=== PATIENT | male | born 1955 | race Caucasian/White ===

== ENCOUNTER 2018-04-28 12:12 | Inpatient (IN) | payer MEDICARE ==
[2018-04-28] MEDS ORDERED: ROCEPHIN 1 Gm-D5w 50 ml Bag** 1 G/50 ML IVPB IV SCH (14:00)
[2018-04-28] MEDS ORDERED: TYLENOL 325 MG PO PRN (14:56)
[2018-04-28] MEDS ORDERED: Kayexylate 15 GM/60 ML PO SCH (15:00)
[2018-04-28] MEDS ORDERED: Sodium Chloride 0.9% 1000 ML 1,000 ML IV SCH (15:00)
[2018-04-28] MEDS ORDERED: D50W 50 ml Abboject IV SCH (15:00)
[2018-04-28] MEDS ORDERED: NovoLOG Insulin IV SCH (15:10)
[2018-04-28] MEDS ORDERED: Sodium Chloride 0.9% 500 ML 500 ML IV ONE (15:28)
[2018-04-28 15:31] LABS: BASOPHIL % 0.1 % (0.0-0.4); Basophil (Absolute #) 0.01 (0-0.4); Eosinophil % 0.7 % (0.00-5.0); Eosinophil (Absolute #) 0.06 (0-0.5); Granulocyte Absolute (ANC) 6.98 (1.4-6.9); Granulocytes % 81.4 % (36.0-66.0); Hematocrit 27.3 % (42-50); Hemoglobin 8.9 gm/dl (12.5-18.0); Lymphocyte (Absolute #) 0.94 (1.0-4.6); Mean Cell Volume 101.5 fl (78-100); Mean Corpuscular Hgb Concent. 32.6 g/dl (32-36); Mean Platelet Volume 9.9 fl (6-9.5); Monocyte (Absolute #) 0.58 (0.0-1.3); Monocytes % 6.8 % (0.0-12.0); Platelet Count 220 K/mm3 (150-450); Red Blood Count 2.69 M/mm3 (4.1-5.6); Red Cell Distribution Width 15.9 % (11.5-14.0); White Blood Count 8.6 K/mm3 (4.0-10.5)
[2018-04-28 15:43] LABS: ALBUMIN 3.9 g/dL (3.5-5.0); ANION GAP 20.4 MEQ/L (5-15); BILIRUBIN,TOTAL 0.7 mg/dL (0.2-1.3); Calcium 9.2 mg/dL (8.4-10.2); Creatinine 1 3.07 mg/dL (0.66-1.25); Total Protein 6.9 g/dL (6.3-8.2)
[2018-04-28 15:47] LABS: Potassium 6.8 mmol/L (3.5-5.1)
[2018-04-28 16:17] VITALS: BP 117/54; PULSE 72; O2SAT 97
--- NOTE | 2018-04-28 16:40 | PCM.HP ---
History of Present Illness - Chief Complaint Chief Complaint: hyperkalemia, acute renal failure History of Present Illness: is a 62 year old male with advanced MS who is wheelchair bound and resides at [facility]. I received a call this morning that he was disoriented, labs revealed that he had hyperkalemia and acute renal failure so he was direct admitted to [facility], he has been treated with fluids and started on rocephin for UTI since admission as well when pyuria was discovered. He has been slightly hypotensive but hemodynamically stable since admission. He denies any focal complaints of pain, has no fever but again his chief complaint was confusion. he has an extensive cardiac history with multiple stents and MIs in the past. - Review of Systems Constitutional: Weakness, No Fever, No Chills Respiratory: No Cough, No Short Of Breath Cardiac: No Chest Pain, No Edema, No Syncope Abdominal/Gastrointestinal: No Abdominal Pain, No Nausea, No Vomiting, No Diarrhea Neurological: Parasthesia, No Focal Weakness All Other Systems: Reviewed and Negative Medications & Allergies Home Medications: Home Medication List Amlodipine Besylate 5 mg [Norvasc 5 mg] 5 mg PO HS 06/16/16 [History Confirmed 04/28/18] Aspirin 81 mg PO DAILY 06/16/16 [History Confirmed 04/28/18] Atorvastatin Calcium [Lipitor] 40 mg PO HS 06/16/16 [History Confirmed 04/28/18] Escitalopram Oxalate 10 mg [Lexapro 10 MG] 20 mg PO DAILY 06/16/16 [History Confirmed 04/28/18] Famotidine 20 mg [Pepcid 20 MG] 20 mg PO BID 06/16/16 [History Confirmed 04/28/18] Isosorbide Mononitrate [Isosorbide Mononitrate ER] 120 mg PO DAILY 06/16/16 [ History Confirmed 04/28/18] Lisinopril 10 mg [Zestril 10 MG] 10 mg PO DAILY 06/16/16 [History Confirmed 04/28/18] Metformin HCl 1000 mg [Glucophage 1000 MG] 1,000 mg PO BID 06/16/16 [History Confirmed 04/28/18] Metoprolol Succinate 25 mg PO HS 06/16/16 [History Confirmed 04/28/18] Ropinirole HCl 2 mg PO HS 06/16/16 [History Confirmed 04/28/18] Terbinafine HCl 250 mg PO DAILY 06/16/16 [History Confirmed 04/28/18] Clopidogrel Bisulfate 75 mg [PLAVIX 75 MG Tablet] 75 mg PO DAILY 06/26/16 [History Confirmed 04/28/18] Glipizide 10 mg [Glucotrol 10 MG] 5 mg PO DAILY 06/26/16 [History Confirmed 04/28/18] PANTOPRAZOLE 40 mg Tablet [Protonix 40MG Tablet] 40 mg PO DAILY 06/26/16 [ History Confirmed 04/28/18] Polyethylene Glycol 3350 17 gm [Miralax Powder 17GM PACKET] 17 gm PO DAILY [History Confirmed 04/28/18] Solifenacin Succinate [Vesicare] 10 mg PO DAILY 06/26/16 [History Confirmed ] Buspirone HCl 15 mg PO BID 08/28/16 [History Confirmed 04/28/18] Cinnamon Bark [Cinnamon] 1,000 mg PO DAILY 08/28/16 [History Confirmed 04/28/18] Ranolazine 500 MG [Ranexa 500 MG] 1,000 mg PO BID 08/28/16 [History Confirmed 04/28/18] Dextrose [Glucose] 4 gm PO UD 04/28/18 [History Confirmed 04/28/18] Duloxetine HCl 30 mg [Cymbalta 30 MG Capsule] 60 mg PO DAILY 04/28/18 [ History Confirmed 04/28/18] Gabapentin 400 mg [Neurontin 400 MG] 600 mg PO TID 04/28/18 [History Confirmed 04/28/18] Glatiramer Acetate [Copaxone] 40 mg SQ 3XW 04/28/18 [History Confirmed 04/28/18] Guaifenesin/Codeine 5 ml [Robitussin AC Syrup Unit Dose Cup] 5 ml PO TID 04/28/18 [History Confirmed 04/28/18] Loperamide HCl 2 mg [Imodium 2 mg] 2 mg PO TID 04/28/18 [History Confirmed 04/28/18] Methocarbamol [Robaxin-750] 1,500 mg PO TID 04/28/18 [History Confirmed 04/28/18 ] Nitroglycerin 0.4 mg Tablet [Nitrostat 0.4 MG Tablet] 0.4 mg SL Q12H PRN PRN 04/28/18 [History Confirmed 04/28/18] Ondansetron ODT 4 MG [Zofran Odt 4 mg] 4 mg PO Q6H PRN PRN 04/28/18 [ History Confirmed 04/28/18] Ranolazine 500 MG [Ranexa 500 MG] 500 mg PO BID 04/28/18 [History Confirmed 04/28/18] Ropinirole HCl 1 mg PO TID 04/28/18 [History Confirmed 04/28/18] Sennosides [Senna Laxative] 8.6 mg PO DAILY 04/28/18 [History Confirmed 04/28/18 ] Allergies/Adverse Reactions: Allergies Allergy/AdvReac Type Severity Reaction Status Date / Time interferon beta-1a Allergy Verified 06/26/16 22:42 [From Avonex] Penicillins Allergy Verified 04/17/16 21:52 interferon beta-1b AdvReac Verified 06/26/16 22:42 [From Betaseron] - Past Medical History Past Medical History: Yes Neurological History: Other ENT History: No Pertinent History Cardiac History: Coronary Artery Disease, Myocardial Infarction ([place]) Respiratory History: No Pertinent History Endocrine Medical History: Diabetes Type II Musculoskelatal History: Arthritis GI Medical History: GERD History: Other Pyscho-Social History: Anxiety Male Reproductive Disorders: No Pertinent History Comment: MULTPILE SCLEROSIS. BILATERAL LE CHRONIC EDEMA AND CELLULITIS WITH HISTORY OF OPEN WOULDS; POOR LE CIRCULATION WITH RLE WORSE THAN LLE. LYMPHODEMA;. NEUROGENIC BLADDER - Past Surgical History Past Surgical History: Yes Neuro Surgical History: No Pertinent History Cardiac History: No Pertinent History Respiratory Surgery: No Pertinent History GI Surgical History: No Pertinent History Genitourinary Surgical Hx: No Pertinent History Musculskeletal Surgical Hx: No Pertinent History Male Surgical History: No Pertinent History Other Surgical History: BIARTERIAL LEFT LEG, HEART CATH X 5, STRESS TESTS, HERNIA REPAIR - Social History Smoking Status: Former smoker How long have you smoked: 30 Exposure to second hand smoke: No Alcohol: None Drug Use: none - Physical Exam Vital Signs: Vital Signs - 24 hr Temp Pulse Resp BP Pulse Ox 04/28/18 16:16 98.0 F 72 18 117/54 97 04/28/18 13:31 98.0 F 96 H 18 78/47 95 General Appearance: no apparent distress, obese Neurologic Exam: alert, cooperative Respiratory Exam: normal breath sounds, lungs clear, No respiratory distress Cardiovascular Exam: regular rate/rhythm, normal heart sounds, normal peripheral pulses Gastrointestinal/Abdomen Exam: soft, normal bowel sounds, No tenderness, No mass Extremity Exam: normal inspection, normal range of motion, pelvis stable, other (contractures to joel hands. chronic lower extremity swelling, weakness BLE chronically) Results - Labs Lab/Micro Results: Accuchecks Date 04/28/18 Time 16:17 Accucheck Value: 73 Lab Results-Last 24 Hours 04/28/18 04/28/18 Range/Units 15:10 15:10 WBC 8.6 (4.0-10.5) K/mm3 RBC 2.69 L (4.1-5.6) M/mm3 Hgb 8.9 L (12.5-18.0) gm/dl Hct 27.3 L (42-50) % MCV 101.5 H (78-100) fl MCH 33.0 H (26-32) pg MCHC 32.6 (32-36) g/dl RDW 15.9 H (11.5-14.0) % Plt Count 220 (150-450) K/mm3 MPV 9.9 H (6-9.5) fl Gran % 81.4 H (36.0-66.0) % Eos # (Auto) 0.06 (0-0.5) Absolute Lymphs (auto) 0.94 L (1.0-4.6) Absolute Monos (auto) 0.58 (0.0-1.3) Lymphocytes % 11.0 L (24.0-44.0) % Monocytes % 6.8 (0.0-12.0) % Eosinophils % 0.7 (0.00-5.0) % Basophils % 0.1 (0.0-0.4) % Absolute Granulocytes 6.98 H (1.4-6.9) Basophils # 0.01 (0-0.4) Sodium 138 (137-145) mmol/L Potassium 6.8 H* (3.5-5.1) mmol/L Chloride 105 (98-107) mmol/L Carbon Dioxide 20 L (22-30) mmol/L Anion Gap 20.4 H (5-15) MEQ/L BUN 67 H (9-20) mg/dL Creatinine 3.07 H (0.66-1.25) mg/dL Estimated GFR 21.9 ML/MIN Glucose 62 L (74-106) mg/dL Calcium 9.2 (8.4-10.2) mg/dL Total Bilirubin 0.70 (0.2-1.3) mg/dL AST 50 (17-59) U/L ALT 62 H (0-50) U/L Alkaline Phosphatase 41 (38-126) U/L Serum Total Protein 6.9 (6.3-8.2) g/dL Albumin 3.9 (3.5-5.0) g/dL Accuchecks Date 04/28/18 Time 16:17 Accucheck Value: 73 Assessment/Plan (1) Acute renal failure (ARF) Current Visit: Yes Status: Acute Assessment & Plan: has worsened with IV fluids since admission, will transfer to [facility] under the care of Dr Dimas. (2) Hyperkalemia Current Visit: Yes Status: Acute Assessment & Plan: transfer to [facility], may need dialysis, no improvement with IV insulin and kayexalate. Code(s): E87.5 - HYPERKALEMIA (3) UTI (urinary tract infection) Current Visit: Yes Status: Acute Assessment & Plan: on rocephin emperically, urine culture pending. had elevated lactate as well, will draw blood cultures but unfortunately rocephin has already been given. Code(s): N39.0 - URINARY TRACT INFECTION, SITE NOT SPECIFIED (4) Hypotension Current Visit: Yes Status: Acute Assessment & Plan: currently 117/54 after bolus and IV fluids initiated, hold all antihypertensives at this time. likely related to UTI and renal failure Code(s): I95.9 - HYPOTENSION, UNSPECIFIED (5) Multiple sclerosis Current Visit: Yes Status: Acute Code(s): G35 - MULTIPLE SCLEROSIS
[2018-04-28] MEDS ORDERED: D50W 50 ml Abboject IV ONE (16:43)
[2018-04-28] MEDS ORDERED: NEURONTIN 300 MG PO SCH (16:45)
[2018-04-28] MEDS ORDERED: GLATIRAMER ACETATE 40 MG SQ SCH (16:45)
[2018-04-28] MEDS ORDERED: Dextrose 5%-NS IV Solution 1000 ML 1,000 ML IV SCH (17:00)
[2018-04-28] MEDS ORDERED: MEDICATION INTERVENTION PO SCH (17:00)
[2018-04-28] MEDS ORDERED: Ditropan 5 MG PO SCH (22:00)
[2018-04-28] MEDS ORDERED: REQUIP 2MG TAB PO SCH (22:00)
[2018-04-28] MEDS ORDERED: Pepcid 20 MG PO SCH (22:00)
[2018-04-28] MEDS ORDERED: BUSPAR 5 MG PO SCH (22:00)
[2018-04-28] MEDS ORDERED: NON-FORMULARY ITEM (Ropinirole Hcl [Ropinirole Hcl] 1 MG) PO SCH (22:00)
[2018-04-29] MEDS ORDERED: NON-FORMULARY ITEM (Solifenacin Succinate [Vesicare] 10 MG) PO SCH (10:00)
[2018-04-29] MEDS ORDERED: ECOTRIN 81 MG PO SCH (10:00)
[2018-04-29] MEDS ORDERED: NON-FORMULARY ITEM (Aspirin [Aspirin] 81 MG) PO SCH (10:00)
[2018-04-29] MEDS ORDERED: PLAVIX 75 MG Tablet PO SCH (10:00)
[2018-04-29] MEDS ORDERED: Cymbalta 30 MG Capsule PO SCH (10:00)
[2018-04-29] MEDS ORDERED: SENOKOT 8.6 MG PO SCH (10:00)
[2018-04-29] MEDS ORDERED: Protonix 40MG Tablet PO SCH (10:00)
[2018-04-29] MEDS ORDERED: Imdur 60MG PO SCH (10:00)
== END 2018-04-28 18:30 | disposition home or self-care (01) | DRG 683 ==
LOC: MED SURG 13:14
PROVIDERS: ADMIT Family Medicine; ATTEND Family Medicine
DX: N17.9 Acute kidney failure, unspecified (principal); N39.0 Urinary tract infection, site not specified; E87.5 Hyperkalemia; E11.649 Type 2 diabetes mellitus with hypoglycemia without coma; T38.3X5A Adverse effect of insulin and oral hypoglycemic [antidiabetic] drugs, initial encounter; G35 Multiple sclerosis; I25.10 Atherosclerotic heart disease of native coronary artery without angina pectoris; I25.2 Old myocardial infarction; M19.90 Unspecified osteoarthritis, unspecified site; K21.9 Gastro-esophageal reflux disease without esophagitis; F41.9 Anxiety disorder, unspecified; N31.9 Neuromuscular dysfunction of bladder, unspecified; I95.9 Hypotension, unspecified
CPT/HCPCS: 36415; 80053; 81000; 82140; 83605; 85025; 85027; 87040; 87086; P9603; 87077; 87186; J0696

== ENCOUNTER 2019-01-19 00:43 | Observation (INO) | payer MEDICARE ==
[2019-01-19] MEDS ORDERED: BABY ASPIRIN 81 MG CHEW PO ONE (00:57)
[2019-01-19 01:09] LABS: BASOPHIL % 0.6 % (0.0-0.4); Basophil (Absolute #) 0.04 (0-0.4); Eosinophil (Absolute #) 0.21 (0-0.5); Granulocyte Absolute (ANC) 5.24 (1.4-6.9); Hematocrit 35.9 % (42-50); Hemoglobin 11.4 gm/dl (12.5-18.0); Lymphocyte (Absolute #) 0.98 (1.0-4.6); Lymphocytes % 14.2 % (24.0-44.0); Mean Cell Volume 94.5 fl (78-100); Mean Corpuscular Hgb Concent. 31.8 g/dl (32-36); Mean Platelet Volume 9.3 fl (6-9.5); Monocyte (Absolute #) 0.43 (0.0-1.3); Monocytes % 6.2 % (0.0-12.0); Platelet Count 240 K/mm3 (150-450); White Blood Count 6.9 K/mm3 (4.0-10.5)
--- NOTE | 2019-01-19 01:13 | ERPHSYRPT ---
- History of Present Illness Time Seen by Provider: 01/19/19 00:59 Historian: patient Exam Limitations: no limitations Patient Subjective Stated Complaint: Pt states he started having substernal cp radiating down joel arms 2 hrs ago, pt was given Nitro SL x 3 at [place] with no relief, pain was 9/10 at this time. 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 per EMS pt bp fishing captain was 190/ 115 Triage Nursing Assessment: [place]/warm/dry, resp easy, a&ox4, gait not observed, pt very talkative. Pitting edema noted to joel legs that pt states is normal. Physician History: 63-year-old white male with history of lymphedema, chronic leg edema, cellulitis , coronary artery disease, myocardial infarction, diabetes. Patient arrives with complaint of substernal chest pain lasting 2 hours Patient states the pain feels like a pressure he denies shortness of breath nausea or vomiting. He does state that he ate 2 bowls a chili prior to the onset of symptoms. Patient initially had a pain level rated as 9/10 after taking Mylanta it was 2/ 10 and now states that he is pain-free. Past medical history includes lymphedema, chronic leg edema, cellulitis of the lower extremities, coronary artery disease, myocardial infarction, diabetes type 2, myocardial infarction, GERD, arthritis, anxiety, multiple sclerosis, neurogenic bladder Past surgical history includes by arterial lower extremity, heart catheter x5, stress test, hernia repair Social history former smoker Timing/Duration: today (2 hours) Activities at Onset: none Quality: pressure Location: substernal Chest Pain Radiation: no radiation Severity of Pain-Max: moderate Severity of Pain-Current: none Modifying Factors: Improves With: antacids (improved after Mylanta), other ( patient states he ate 2 bowls of chili). Worsens With: breathing, coughing, defecating, eating, exertion, lying down, morphine, movement, nitroglycerin, oxygen, palpation, rest, aspirin, sitting up, change in position Associated Symptoms: No nausea, No vomiting, No palpitations, No heartburn, No abdominal pain, No shortness of breath, No cough, No hurts to breathe, No diaphoresis, No chills, No fever, No fatigue, No weakness, No swelling/lump in chest, No syncope, No rash, No headache, No dizziness, No edema, No back pain Prior Chest Pain/Cardiac Workup: cardiac cath Nitro Today/Relief: 0.4 mg x 3 (provided by group home) Aspirin Treatment Today: 81 mg x 3, provided by ED Allergies/Adverse Reactions: interferon beta-1a [From Avonex] Allergy (Verified 06/26/16 22:42) Penicillins Allergy (Verified 04/17/16 21:52) interferon beta-1b [From Betaseron] Adverse Reaction (Verified 06/26/16 22:42) Home Medications: Amlodipine Besylate 5 mg [Norvasc 5 mg] 5 mg PO HS 06/16/16 [History] Aspirin 81 mg PO DAILY 06/16/16 [History] Atorvastatin Calcium [Lipitor] 40 mg PO HS 06/16/16 [History] Escitalopram Oxalate 10 mg [Lexapro 10 MG] 20 mg PO DAILY 06/16/16 [History] Famotidine 20 mg [Pepcid 20 MG] 20 mg PO BID 06/16/16 [History] Isosorbide Mononitrate [Isosorbide Mononitrate ER] 120 mg PO DAILY 06/16/16 [ History] Lisinopril 10 mg [Zestril 10 MG] 10 mg PO DAILY 06/16/16 [History] Metformin HCl 1000 mg [Glucophage 1000 MG] 1,000 mg PO BID 06/16/16 [History] Metoprolol Succinate 25 mg PO HS 06/16/16 [History] Ropinirole HCl 2 mg PO HS 06/16/16 [History] Terbinafine HCl 250 mg PO DAILY 06/16/16 [History] Clopidogrel Bisulfate 75 mg [PLAVIX 75 MG Tablet] 75 mg PO DAILY 06/26/16 [History] Glipizide 10 mg [Glucotrol 10 MG] 5 mg PO DAILY 06/26/16 [History] PANTOPRAZOLE 40 mg Tablet [Protonix 40MG Tablet] 40 mg PO DAILY 06/26/16 [ History] Polyethylene Glycol 3350 17 gm [Miralax Powder 17GM PACKET] 17 gm PO DAILY [History] Solifenacin Succinate [Vesicare] 10 mg PO DAILY 06/26/16 [History] Buspirone HCl 15 mg PO BID 08/28/16 [History] Cinnamon Bark [Cinnamon] 1,000 mg PO DAILY 08/28/16 [History] Ranolazine 500 MG [Ranexa 500 MG] 1,000 mg PO BID 08/28/16 [History] Dextrose [Glucose] 4 gm PO UD 04/28/18 [History] Duloxetine HCl 30 mg [Cymbalta 30 MG Capsule] 60 mg PO DAILY 04/28/18 [ History] Gabapentin 400 mg [Neurontin 400 MG] 600 mg PO TID 04/28/18 [History] Glatiramer Acetate [Copaxone] 40 mg SQ 3XW 04/28/18 [History] Guaifenesin/Codeine 5 ml [Robitussin AC Syrup Unit Dose Cup] 5 ml PO TID 04/28/18 [History] Loperamide HCl 2 mg [Imodium 2 mg] 2 mg PO TID 04/28/18 [History] Methocarbamol [Robaxin-750] 1,500 mg PO TID 04/28/18 [History] Nitroglycerin 0.4 mg Tablet [Nitrostat 0.4 MG Tablet] 0.4 mg SL Q12H PRN PRN 04/28/18 [History] Ondansetron ODT 4 MG [Zofran Odt 4 mg] 4 mg PO Q6H PRN PRN 04/28/18 [ History] Ranolazine 500 MG [Ranexa 500 MG] 500 mg PO BID 04/28/18 [History] Ropinirole HCl 1 mg PO TID 04/28/18 [History] Sennosides [Senna Laxative] 8.6 mg PO DAILY 04/28/18 [History] Hx Tetanus, Diphtheria Vaccination/Date Given: Yes Hx Influenza Vaccination/Date Given: No Hx Pneumococcal Vaccination/Date Given: No Immunizations Up to Date: Yes - Review of Systems Constitutional: No Fever, No Chills Eyes: No Symptoms Ears, Nose, & Throat: No Symptoms Respiratory: No Cough, No Dyspnea Cardiac: Chest Pain, Edema (cchronic lower extremity edema), No Palpitations, No Syncope, No Orthopnea, No PND Abdominal/Gastrointestinal: No Abdominal Pain, No Nausea, No Vomiting, No Diarrhea Genitourinary Symptoms: No Dysuria Musculoskeletal: No Back Pain, No Neck Pain Skin: No Rash Neurological: No Dizziness, No Focal Weakness, No Sensory Changes Psychological: No Symptoms Endocrine: No Symptoms All Other Systems: Reviewed and Negative - Past Medical History Pertinent Past Medical History: Yes Neurological History: Other ENT History: No Pertinent History Cardiac History: Coronary Artery Disease, Myocardial Infarction ([place]) Respiratory History: No Pertinent History Endocrine Medical History: Diabetes Type II Musculoskeletal History: Arthritis GI Medical History: GERD History: Other Psycho-Social History: Anxiety Male Reproductive Disorders: No Pertinent History Other Medical History: MULTPILE SCLEROSIS. BILATERAL LE CHRONIC EDEMA AND CELLULITIS WITH HISTORY OF OPEN WOULDS; POOR LE CIRCULATION WITH RLE WORSE THAN LLE. LYMPHODEMA;. NEUROGENIC BLADDER - Past Surgical History Past Surgical History: Yes Neuro Surgical History: No Pertinent History Cardiac: No Pertinent History Respiratory: No Pertinent History Gastrointestinal: No Pertinent History Genitourinary: No Pertinent History Musculoskeletal: No Pertinent History Male Surgical History: No Pertinent History Other Surgical History: BIARTERIAL LEFT LEG, HEART CATH X 5, STRESS TESTS, HERNIA REPAIR - Social History Smoking Status: Former smoker How long have you smoked: 30 Exposure to second hand smoke: No Drug Use: none Patient Lives Alone: No - Nursing Vital Signs Nursing Vital Signs: Initial Vital Signs Temperature 98.1 F 01/19/19 00:44 Pulse Rate 100 H 01/19/19 00:44 Respiratory Rate 16 01/19/19 00:44 Blood Pressure 154/95 01/19/19 00:44 O2 Sat by Pulse Oximetry 97 01/19/19 00:44 Pain Scale Pain Intensity 0 - Physical Exam General Appearance: no apparent distress, alert, obese Eye Exam: PERRL/EOMI, eyes nml inspection Ears, Nose, Throat Exam: normal ENT inspection, moist mucous membranes Neck Exam: normal inspection, non-tender, supple, full range of motion Respiratory Exam: normal breath sounds, lungs clear, No respiratory distress Cardiovascular Exam: regular rate/rhythm, normal heart sounds, capillary refill <2 sec, edema (chronic lower extremity edema) Gastrointestinal/Abdomen Exam: soft, No tenderness, No mass Back Exam: normal inspection Extremity Exam: normal range of motion, other (chronic lower extremity edema) Neurologic Exam: alert, oriented x 3, cooperative, plant operator II-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 nml as tested, normal mood/affect, sensation nml, No motor deficits Skin Exam: normal color, warm, dry SpO2 Interpretation: normal (97%) SpO2: 97 - Course Nursing assessment & vital signs reviewed: Yes EKG Interpreted by Me: RATE (100 bpm), Sinus Rhythm, Left Dante Deviation, Other (EKG: Sinus rhythm, 100 beats per minute, normal axis, no acute ST or T wave changes) - Radiology Exams Chest X-ray Interpretation: Interpreted by me (no acute disease process) Ordered Tests: Active Orders 24 hr Category Date Time Status Motor Grader Operator STAT Care 01/19/19 00:56 Active EKG-ER Only STAT Care 01/19/19 00:54 Active IV Insertion STAT Care 01/19/19 00:54 Active Pulse Oximetry (ED) STAT Care 01/19/19 00:54 Active CHEST 1 VIEW (PORTABLE) Stat Exams 01/19/19 00:55 Taken CHEST WITH CONTRAST [CT] Stat Exams 01/19/19 01:33 Taken AMYLASE Stat Lab 01/19/19 01:00 Completed CBC W DIFF Stat Lab 01/19/19 01:00 Completed CMP Stat Lab 01/19/19 01:00 Completed D-DIMER QUANTITATION Stat Lab 01/19/19 01:00 Completed LIPASE Stat Lab 01/19/19 01:00 Completed PROTIME WITH INR Stat Lab 01/19/19 01:00 Completed PTT Stat Lab 01/19/19 01:00 Completed TROPONIN Q3H Lab 01/19/19 01:00 Completed TROPONIN Q3H Lab 01/19/19 04:00 Ordered TROPONIN Q3H Lab 01/19/19 07:00 Ordered TROPONIN Q3H Lab 01/19/19 10:00 Ordered TROPONIN Q3H Lab 01/19/19 13:00 Ordered Transfer Order Routine Transfer 01/19/19 Ordered Medication Summary Discontinued Medications Generic Name Dose Route Start Last Admin Trade Name Freq PRN Reason Stop Dose Admin Aspirin 243 mg 01/19/19 00:57 01/19/19 01:54 Baby Aspirin 81 Mg Chew PO 01/19/19 00:58 243 mg STAT ONE Administration Enoxaparin Sodium 110 mg 01/19/19 03:38 01/19/19 03:45 Enoxaparin Sodium 1 mg/kg (110 mg) 01/19/19 03:39 110 mg SQ Administration 1XONLY STA Enoxaparin Sodium Confirm 01/19/19 03:42 Enoxaparin Sodium Administered 01/19/19 03:43 Dose 120 mg SQ .STK-MED ONE Lab/Rad Data: Laboratory Result Diagrams 01/19/19 01:00 01/19/19 01:00 Laboratory Results 01/19/19 01/19/19 01/19/19 Range/Units 01:00 01:00 01:00 WBC (4.0-10.5) K/mm3 RBC (4.1-5.6) M/mm3 Hgb (12.5-18.0) gm/dl Hct (42-50) % MCV (78-100) fl MCH (26-32) pg MCHC (32-36) g/dl RDW (11.5-14.0) % Plt Count (150-450) K/mm3 MPV (6-9.5) fl Gran % (36.0-66.0) % Eos # (Auto) (0-0.5) Absolute Lymphs (auto) (1.0-4.6) Absolute Monos (auto) (0.0-1.3) Lymphocytes % (24.0-44.0) % Monocytes % (0.0-12.0) % Eosinophils % (0.00-5.0) % Basophils % (0.0-0.4) % Absolute Granulocytes (1.4-6.9) Basophils # (0-0.4) PT 11.3 (8.83-12.87) SECONDS INR 0.97 (0.8-3.0) APTT 28.2 (24.1-36.1) SECONDS D-Dimer 984 H* (215-500) ng/mL Sodium (137-145) mmol/L Potassium (3.5-5.1) mmol/L Chloride (98-107) mmol/L Carbon Dioxide (22-30) mmol/L Anion Gap (5-15) MEQ/L BUN (9-20) mg/dL Creatinine (0.66-1.25) mg/dL Estimated GFR ML/MIN Glucose (74-106) mg/dL Calcium (8.4-10.2) mg/dL Total Bilirubin (0.2-1.3) mg/dL AST (17-59) U/L ALT (0-50) U/L Alkaline Phosphatase (38-126) U/L Troponin I 0.013 (0.000-0.034) ng/mL Serum Total Protein (6.3-8.2) g/dL Albumin (3.5-5.0) g/dL Amylase 79 (30-110) U/L Lipase 230 (23-300) U/L 01/19/19 01/19/19 Range/Units 01:00 01:00 WBC 6.9 (4.0-10.5) K/mm3 RBC 3.80 L (4.1-5.6) M/mm3 Hgb 11.4 L (12.5-18.0) gm/dl Hct 35.9 L (42-50) % MCV 94.5 (78-100) fl MCH 30.0 (26-32) pg MCHC 31.8 L (32-36) g/dl RDW 18.0 H (11.5-14.0) % Plt Count 240 (150-450) K/mm3 MPV 9.3 (6-9.5) fl Gran % 76.0 H (36.0-66.0) % Eos # (Auto) 0.21 (0-0.5) Absolute Lymphs (auto) 0.98 L (1.0-4.6) Absolute Monos (auto) 0.43 (0.0-1.3) Lymphocytes % 14.2 L (24.0-44.0) % Monocytes % 6.2 (0.0-12.0) % Eosinophils % 3.0 (0.00-5.0) % Basophils % 0.6 (0.0-0.4) % Absolute Granulocytes 5.24 (1.4-6.9) Basophils # 0.04 (0-0.4) PT (8.83-12.87) SECONDS INR (0.8-3.0) APTT (24.1-36.1) SECONDS D-Dimer (215-500) ng/mL Sodium 141 (137-145) mmol/L Potassium 4.4 (3.5-5.1) mmol/L Chloride 101 (98-107) mmol/L Carbon Dioxide 26 (22-30) mmol/L Anion Gap 17.9 H (5-15) MEQ/L BUN 20 (9-20) mg/dL Creatinine 0.86 (0.66-1.25) mg/dL Estimated GFR > 60.0 ML/MIN Glucose 270 H (74-106) mg/dL Calcium 9.7 (8.4-10.2) mg/dL Total Bilirubin 0.50 (0.2-1.3) mg/dL AST 48 (17-59) U/L ALT 44 (0-50) U/L Alkaline Phosphatase 104 (38-126) U/L Troponin I (0.000-0.034) ng/mL Serum Total Protein 8.1 (6.3-8.2) g/dL Albumin 4.4 (3.5-5.0) g/dL Amylase (30-110) U/L Lipase (23-300) U/L - Progress Progress: improved Air Movement: fair Progress Note: 01/19/19 03:33 63-year-old white male with history of lymphedema, chronic leg edema, cellulitis , coronary artery disease, myocardial infarction, diabetes type 2, arthritis, GERD, anxiety, MS who states he has had multiple heart attacks in the past Patient lives in local group home he was complaining of 2 hours of anterior chest pain described as a pressure prior to the time he came in here he states that he thought this might be from eating chili Patient apparently had been given nitroglycerin x3 at the group home with no relief he states that he took some Maalox and his pain went away patient initially had pain in the 10 he states his pain went to a 2/10 after taking Maalox and had 0/10 on arrival. Patient with stable vital signs upon arrival lungs were clear heart was regular Patient was EKG sinus rhythm 100 beats per minute left axis deviation no acute ST or T wave changes were noted chest x-ray no acute disease process noted patient unfortunately had elevated d-dimer and CT of the chest was remarkable for 2 focal filling defects located in the sub segmental branches of the left lower lobe pulmonary artery This was felt to be consistent by virtual radiology with the presence of pulmonary embolic disease. There was no evidence of right heart strain. No associated pulmonary infiltrate Patient with CBC white blood cell 6.9 hemoglobin 11.0 hematocrit 35.0 platelets 240 INR was 0.97 Troponin was 0.013 patient's sodium 141 potassium 4.4 chloride 101 bicarbonate 26 BUN 20 creatinine 0.86 glucose 270 d-dimer was elevated at 984 Patient was given aspirin to 43 mg orally here in the emergency room he states he takes daily 81 mg. Case was discussed with Dr. Rahman who is aqua ammonia operator for Dr. Bentley the patient's physician will go ahead and place patient on Lovenox 1 mg per kilogram subcutaneously. Will place patient on telemetry. Will go ahead and place patient on sliding scale insulin coverage. Will continue serial troponins and telemetry. Impression 1 chest pain. 2 pulmonary embolism. - Departure Departure Disposition: Observation Clinical Impression: Chest pain Qualifiers: Chest pain type: unspecified Qualified Code(s): R07.9 - Chest pain, unspecified Pulmonary embolism Qualifiers: Pulmonary embolism type: unspecified Chronicity: acute Acute cor pulmonale presence: without acute cor pulmonale Qualified Code(s): I26.99 - Other pulmonary embolism without acute cor pulmonale Condition: Fair Critical Care Time: No Referrals: ZAHRA ROWE [Primary Care Provider] -
[2019-01-19 01:18] LABS: INR 0.97 (0.8-3.0); PROTIME 11.3 SECONDS (8.83-12.87)
[2019-01-19 01:21] LABS: AMYLASE 79 U/L (30-110); LIPASE 230 U/L (23-300); PTT 28.2 SECONDS (24.1-36.1)
[2019-01-19 01:23] LABS: ALBUMIN 4.4 g/dL (3.5-5.0); ALKALINE PHOSPHATASE 104 U/L (38-126); ANION GAP 17.9 MEQ/L (5-15); BLOOD UREA NITROGEN 20 mg/dL (9-20); CHLORIDE 101 mmol/L (98-107); Calcium 9.7 mg/dL (8.4-10.2); Carbon Dioxide 26 mmol/L (22-30); Creatinine 1 0.86 mg/dL (0.66-1.25); Glucose 270 mg/dL (74-106); Potassium 4.4 mmol/L (3.5-5.1); SGOT/AST 48 U/L (17-59); SGPT/ALT 44 U/L (0-50); SODIUM 141 mmol/L (137-145); Total Protein 8.1 g/dL (6.3-8.2)
[2019-01-19] MEDS ORDERED: HOLD METFORMIN PRODUCTS FOR 48 HOURS MC SCH (02:20)
[2019-01-19] MEDS ORDERED: ENOXAPARIN SODIUM SQ STA (03:38)
[2019-01-19] MEDS ORDERED: ENOXAPARIN SODIUM SQ ONE (03:42)
[2019-01-19] MEDS ORDERED: ENOXAPARIN SODIUM SQ SCH ×2 (04:31→16:00)
--- NOTE | 2019-01-19 08:52 | PCM.SSS ---
History of Present Illness - Chief Complaint Chief Complaint: PE History of Present Illness: is a 63 year old male with multiple medical problems, he came to the ER with chest pain. He had been given nitro x 3 at [place] with no relief in his chest pain prior to arrival, he reports his pain resolved quickly after arrival to the hospital. He denies chest pain or shortness of breath, he has a history of CAD with stents and follows with Dr Lomax, he is wheelchair bound, morbidly obese with advance multiple sclerosis. This morning he feels completely well, denies any chest pain or shortness of breath and insists he wants to go back to [place] today. - Review of Systems Constitutional: No Fever, No Chills Respiratory: No Cough, No Short Of Breath Cardiac: Chest Pain (resolved) Abdominal/Gastrointestinal: No Abdominal Pain, No Nausea, No Vomiting, No Diarrhea Skin: No Rash Neurological: No Focal Weakness All Other Systems: Reviewed and Negative Medications & Allergies Home Medications: Home Medication List Amlodipine Besylate 5 mg [Norvasc 5 mg] 2.5 mg PO HS 06/16/16 [History Confirmed 01/19/19] Aspirin 81 mg PO DAILY 06/16/16 [History Confirmed 01/19/19] Atorvastatin Calcium [Lipitor] 40 mg PO HS 06/16/16 [History Confirmed 01/19/19] Famotidine 20 mg [Pepcid 20 MG] 20 mg PO BID 06/16/16 [History Confirmed 01/19/19] Isosorbide Mononitrate [Isosorbide Mononitrate ER] 120 mg PO DAILY 06/16/16 [ History Confirmed 01/19/19] Metformin HCl 1000 mg [Glucophage 1000 MG] 1,000 mg PO BID 06/16/16 [History Confirmed 01/19/19] Metoprolol Succinate 25 mg PO HS 06/16/16 [History Confirmed 01/19/19] Ropinirole HCl 2 mg PO HS 06/16/16 [History Confirmed 01/19/19] Terbinafine HCl 250 mg PO DAILY 06/16/16 [History Confirmed 01/19/19] Clopidogrel Bisulfate 75 mg [PLAVIX 75 MG Tablet] 75 mg PO DAILY 06/26/16 [History Confirmed 01/19/19] PANTOPRAZOLE 40 mg Tablet [Protonix 40MG Tablet] 40 mg PO DAILY 06/26/16 [ History Confirmed 01/19/19] Polyethylene Glycol 3350 17 gm [Miralax Powder 17GM PACKET] 17 gm PO DAILY [History Confirmed 01/19/19] Dextrose [Glucose] 4 gm PO UD 04/28/18 [History Confirmed 01/19/19] Duloxetine HCl 30 mg [Cymbalta 30 MG Capsule] 60 mg PO DAILY 04/28/18 [ History Confirmed 01/19/19] Glatiramer Acetate [Copaxone] 40 mg SQ 3XW 04/28/18 [History Confirmed 01/19/19] Loperamide HCl 2 mg [Imodium 2 mg] 2 mg PO TID PRN 04/28/18 [History Confirmed 01/19/19] Methocarbamol [Robaxin-750] 1,500 mg PO TID 04/28/18 [History Confirmed 01/19/19 ] Nitroglycerin 0.4 mg Tablet [Nitrostat 0.4 MG Tablet] 0.4 mg SL Q12H PRN PRN 04/28/18 [History Confirmed 01/19/19] Ondansetron ODT 4 MG [Zofran Odt 4 mg] 4 mg PO Q6H PRN PRN 04/28/18 [ History Confirmed 01/19/19] Ranolazine 500 MG [Ranexa 500 MG] 500 mg PO BID 04/28/18 [History Confirmed 01/19/19] Ropinirole HCl 1 mg PO TID 04/28/18 [History Confirmed 01/19/19] Sennosides [Senna Laxative] 8.6 mg PO DAILY 04/28/18 [History Confirmed 01/19/19 ] Acetaminophen 500 mg [Tylenol Extra Strength 500 mg] 500 mg PO Q4H PRN PRN 01/19/19 [History Confirmed 01/19/19] Buspirone HCl 5 mg [Buspar 5 mg] 10 mg PO BID 01/19/19 [History Confirmed 01/19/19] Cyanocobalamin (Vitamin B-12) [Vitamin B12] 1,000 mcg PO DAILY 01/19/19 [ History Confirmed 01/19/19] Docusate Sodium 100 mg [Colace 100 MG] 100 mg PO BID 01/19/19 [History Confirmed 01/19/19] Ergocalciferol (Vitamin D2) [Vitamin D] 50,000 unit PO 2XW 01/19/19 [History Confirmed 01/19/19] Folic Acid 1 mg [Folate 1 mg] 1 mg PO DAILY 01/19/19 [History Confirmed ] Furosemide 20 mg [Lasix 20 mg] 20 mg PO DAILY 01/19/19 [History Confirmed 01/19/19] Gabapentin [Neurontin] 600 mg PO TID 01/19/19 [History Confirmed 01/19/19] Magnesium Oxide 400 mg [Mag-Ox 400] 400 mg PO BID 01/19/19 [History Confirmed 01/19/19] Multivit with Iron,Minerals [Unicomplex-M] 1 each PO DAILY 01/19/19 [History Confirmed 01/19/19] Potassium Chloride 10 Meq Tab* [Klor Con 10 MEQ] 10 meq PO DAILY 01/19/19 [ History Confirmed 01/19/19] Tramadol HCl 50 mg [Ultram 50 mg] 50 mg PO Q6HPRN PRN 01/19/19 [History Confirmed 01/19/19] Allergies/Adverse Reactions: Allergies Allergy/AdvReac Type Severity Reaction Status Date / Time interferon beta-1a Allergy Verified 06/26/16 22:42 [From Avonex] Penicillins Allergy Verified 04/17/16 21:52 interferon beta-1b AdvReac Verified 06/26/16 22:42 [From Betaseron] - Past Medical History Past Medical History: Yes Neurological History: Other ENT History: No Pertinent History Cardiac History: Coronary Artery Disease, Myocardial Infarction (NM) Respiratory History: No Pertinent History Endocrine Medical History: Diabetes Type II Musculoskelatal History: Arthritis GI Medical History: GERD History: Other Pyscho-Social History: Anxiety Male Reproductive Disorders: No Pertinent History Comment: MULTPILE SCLEROSIS. BILATERAL LE CHRONIC EDEMA AND CELLULITIS WITH HISTORY OF OPEN WOULDS; POOR LE CIRCULATION WITH RLE WORSE THAN LLE. LYMPHODEMA;. NEUROGENIC BLADDER - Past Surgical History Past Surgical History: Yes Neuro Surgical History: No Pertinent History Cardiac History: No Pertinent History Respiratory Surgery: No Pertinent History GI Surgical History: No Pertinent History Genitourinary Surgical Hx: No Pertinent History Musculskeletal Surgical Hx: No Pertinent History Male Surgical History: No Pertinent History Other Surgical History: BIARTERIAL LEFT LEG, HEART CATH X 5, STRESS TESTS, HERNIA REPAIR - Social History Smoking Status: Former smoker How long have you smoked: 30 Exposure to second hand smoke: No Alcohol: None Drug Use: none - Physical Exam Vital Signs: Vital Signs - 24 hr Temp Pulse Pulse Resp BP Pulse Ox 01/19/19 07:34 97.8 F 78 20 140/72 97 01/19/19 06:53 96 01/19/19 05:11 97.7 F 84 17 118/73 96 01/19/19 04:31 92 H 18 96 01/19/19 04:08 97 01/19/19 03:55 91 H 18 114/82 97 01/19/19 00:54 97 01/19/19 00:44 98.1 F 99 H 100 H 16 154/95 97 General Appearance: no apparent distress, obese Neurologic Exam: alert, oriented x 3, cooperative Eye Exam: PERRL/EOMI, eyes nml inspection Respiratory Exam: normal breath sounds, lungs clear, No respiratory distress Cardiovascular Exam: regular rate/rhythm, normal heart sounds, normal peripheral pulses Gastrointestinal/Abdomen Exam: soft, normal bowel sounds, No tenderness, No mass Extremity Exam: normal inspection, normal range of motion, pelvis stable, other (chronic lymphedema changes) Results - Labs Lab/Micro Results: Lab Results-Last 24 Hours 01/19/19 01/19/19 01/19/19 Range/Units 01:00 01:00 01:00 WBC 6.9 (4.0-10.5) K/mm3 RBC 3.80 L (4.1-5.6) M/mm3 Hgb 11.4 L (12.5-18.0) gm/dl Hct 35.9 L (42-50) % MCV 94.5 (78-100) fl MCH 30.0 (26-32) pg MCHC 31.8 L (32-36) g/dl RDW 18.0 H (11.5-14.0) % Plt Count 240 (150-450) K/mm3 MPV 9.3 (6-9.5) fl Gran % 76.0 H (36.0-66.0) % Eos # (Auto) 0.21 (0-0.5) Absolute Lymphs (auto) 0.98 L (1.0-4.6) Absolute Monos (auto) 0.43 (0.0-1.3) Lymphocytes % 14.2 L (24.0-44.0) % Monocytes % 6.2 (0.0-12.0) % Eosinophils % 3.0 (0.00-5.0) % Basophils % 0.6 (0.0-0.4) % Absolute Granulocytes 5.24 (1.4-6.9) Basophils # 0.04 (0-0.4) PT 11.3 (8.83-12.87) SECONDS INR 0.97 (0.8-3.0) APTT 28.2 (24.1-36.1) SECONDS D-Dimer 984 H* (215-500) ng/mL Sodium 141 (137-145) mmol/L Potassium 4.4 (3.5-5.1) mmol/L Chloride 101 (98-107) mmol/L Carbon Dioxide 26 (22-30) mmol/L Anion Gap 17.9 H (5-15) MEQ/L BUN 20 (9-20) mg/dL Creatinine 0.86 (0.66-1.25) mg/dL Estimated GFR > 60.0 ML/MIN Glucose 270 H (74-106) mg/dL Calcium 9.7 (8.4-10.2) mg/dL Total Bilirubin 0.50 (0.2-1.3) mg/dL AST 48 (17-59) U/L ALT 44 (0-50) U/L Alkaline Phosphatase 104 (38-126) U/L Troponin I (0.000-0.034) ng/mL Serum Total Protein 8.1 (6.3-8.2) g/dL Albumin 4.4 (3.5-5.0) g/dL Amylase (30-110) U/L Lipase (23-300) U/L 01/19/19 01/19/19 01/19/19 Range/Units 01:00 01:00 04:30 WBC (4.0-10.5) K/mm3 RBC (4.1-5.6) M/mm3 Hgb (12.5-18.0) gm/dl Hct (42-50) % MCV (78-100) fl MCH (26-32) pg MCHC (32-36) g/dl RDW (11.5-14.0) % Plt Count (150-450) K/mm3 MPV (6-9.5) fl Gran % (36.0-66.0) % Eos # (Auto) (0-0.5) Absolute Lymphs (auto) (1.0-4.6) Absolute Monos (auto) (0.0-1.3) Lymphocytes % (24.0-44.0) % Monocytes % (0.0-12.0) % Eosinophils % (0.00-5.0) % Basophils % (0.0-0.4) % Absolute Granulocytes (1.4-6.9) Basophils # (0-0.4) PT (8.83-12.87) SECONDS INR (0.8-3.0) APTT (24.1-36.1) SECONDS D-Dimer (215-500) ng/mL Sodium (137-145) mmol/L Potassium (3.5-5.1) mmol/L Chloride (98-107) mmol/L Carbon Dioxide (22-30) mmol/L Anion Gap (5-15) MEQ/L BUN (9-20) mg/dL Creatinine (0.66-1.25) mg/dL Estimated GFR ML/MIN Glucose (74-106) mg/dL Calcium (8.4-10.2) mg/dL Total Bilirubin (0.2-1.3) mg/dL AST (17-59) U/L ALT (0-50) U/L Alkaline Phosphatase (38-126) U/L Troponin I 0.013 0.043 H* (0.000-0.034) ng/mL Serum Total Protein (6.3-8.2) g/dL Albumin (3.5-5.0) g/dL Amylase 79 (30-110) U/L Lipase 230 (23-300) U/L 01/19/19 Range/Units 07:00 WBC (4.0-10.5) K/mm3 RBC (4.1-5.6) M/mm3 Hgb (12.5-18.0) gm/dl Hct (42-50) % MCV (78-100) fl MCH (26-32) pg MCHC (32-36) g/dl RDW (11.5-14.0) % Plt Count (150-450) K/mm3 MPV (6-9.5) fl Gran % (36.0-66.0) % Eos # (Auto) (0-0.5) Absolute Lymphs (auto) (1.0-4.6) Absolute Monos (auto) (0.0-1.3) Lymphocytes % (24.0-44.0) % Monocytes % (0.0-12.0) % Eosinophils % (0.00-5.0) % Basophils % (0.0-0.4) % Absolute Granulocytes (1.4-6.9) Basophils # (0-0.4) PT (8.83-12.87) SECONDS INR (0.8-3.0) APTT (24.1-36.1) SECONDS D-Dimer (215-500) ng/mL Sodium (137-145) mmol/L Potassium (3.5-5.1) mmol/L Chloride (98-107) mmol/L Carbon Dioxide (22-30) mmol/L Anion Gap (5-15) MEQ/L BUN (9-20) mg/dL Creatinine (0.66-1.25) mg/dL Estimated GFR ML/MIN Glucose (74-106) mg/dL Calcium (8.4-10.2) mg/dL Total Bilirubin (0.2-1.3) mg/dL AST (17-59) U/L ALT (0-50) U/L Alkaline Phosphatase (38-126) U/L Troponin I 0.072 H* (0.000-0.034) ng/mL Serum Total Protein (6.3-8.2) g/dL Albumin (3.5-5.0) g/dL Amylase (30-110) U/L Lipase (23-300) U/L - Radiology Impressions Radiology Exams & Impressions: Radiology Procedures Category Date Time Status CHEST 1 VIEW (PORTABLE) Stat Exams 01/19/19 00:55 Taken CHEST WITH CONTRAST [CT] Stat Exams 01/19/19 01:33 Taken Assessment/Plan (1) Pulmonary embolism Current Visit: Yes Status: Acute Qualifiers: Pulmonary embolism type: unspecified Chronicity: acute Acute cor pulmonale presence: without acute cor pulmonale Qualified Code(s): I26.99 - Other pulmonary embolism without acute cor pulmonale Assessment & Plan: plan to start on eliquis, received lovenox in ER, patient is also on aspirin 81mg and plavix. will consult with cardiology at this time Code(s): I26.99 - OTHER PULMONARY EMBOLISM WITHOUT ACUTE COR PULMONALE (2) Elevated troponin Current Visit: Yes Status: Acute Assessment & Plan: will consult cardiology, likely related to strain from PE although Rogelio is asymptomatic at this time. he insists to go back to [facility] today, if no further workup etc recommended by cardiology and no intervention required based on minimally elevated troponin could likely discharge on eliquis to [place] and he will be followed by me there. Code(s): R74.8 - ABNORMAL LEVELS OF OTHER SERUM ENZYMES (3) Chest pain Current Visit: Yes Status: Acute Qualifiers: Chest pain type: unspecified Qualified Code(s): R07.9 - Chest pain, unspecified Assessment & Plan: likely related to PE, patient has been pain-free since admission Code(s): R07.9 - CHEST PAIN, UNSPECIFIED (4) Multiple sclerosis Current Visit: No Status: Acute Code(s): G35 - MULTIPLE SCLEROSIS (5) Diabetes mellitus Current Visit: No Status: Chronic Code(s): E11.9 - TYPE 2 DIABETES MELLITUS WITHOUT COMPLICATIONS (6) Lymphedema of lower extremity Current Visit: No Status: Chronic Code(s): I89.0 - LYMPHEDEMA, NOT ELSEWHERE CLASSIFIED Hospital Summary - Vitals & Intake/Output Vital Signs: Vital Signs Temperature 97.8 F 01/19/19 07:34 Pulse Rate 78 01/19/19 07:34 Respiratory Rate 20 01/19/19 07:34 Blood Pressure 140/72 01/19/19 07:34 O2 Sat by Pulse Oximetry 97 01/19/19 07:34 Intake & Output: Intake & Output 01/16/19 01/17/19 01/18/19 01/19/19 11:59 11:59 11:59 11:59 Output Total 700 Balance -700 Weight 108.3 kg - Lab Result Diagrams: 01/19/19 01:00 01/19/19 01:00 Lab Results-Last 24 Hrs: Lab Results-Last 24 Hours 01/19/19 01/19/19 01/19/19 Range/Units 01:00 01:00 01:00 WBC 6.9 (4.0-10.5) K/mm3 RBC 3.80 L (4.1-5.6) M/mm3 Hgb 11.4 L (12.5-18.0) gm/dl Hct 35.9 L (42-50) % MCV 94.5 (78-100) fl MCH 30.0 (26-32) pg MCHC 31.8 L (32-36) g/dl RDW 18.0 H (11.5-14.0) % Plt Count 240 (150-450) K/mm3 MPV 9.3 (6-9.5) fl Gran % 76.0 H (36.0-66.0) % Eos # (Auto) 0.21 (0-0.5) Absolute Lymphs (auto) 0.98 L (1.0-4.6) Absolute Monos (auto) 0.43 (0.0-1.3) Lymphocytes % 14.2 L (24.0-44.0) % Monocytes % 6.2 (0.0-12.0) % Eosinophils % 3.0 (0.00-5.0) % Basophils % 0.6 (0.0-0.4) % Absolute Granulocytes 5.24 (1.4-6.9) Basophils # 0.04 (0-0.4) PT 11.3 (8.83-12.87) SECONDS INR 0.97 (0.8-3.0) APTT 28.2 (24.1-36.1) SECONDS D-Dimer 984 H* (215-500) ng/mL Sodium 141 (137-145) mmol/L Potassium 4.4 (3.5-5.1) mmol/L Chloride 101 (98-107) mmol/L Carbon Dioxide 26 (22-30) mmol/L Anion Gap 17.9 H (5-15) MEQ/L BUN 20 (9-20) mg/dL Creatinine 0.86 (0.66-1.25) mg/dL Estimated GFR > 60.0 ML/MIN Glucose 270 H (74-106) mg/dL Calcium 9.7 (8.4-10.2) mg/dL Total Bilirubin 0.50 (0.2-1.3) mg/dL AST 48 (17-59) U/L ALT 44 (0-50) U/L Alkaline Phosphatase 104 (38-126) U/L Troponin I (0.000-0.034) ng/mL Serum Total Protein 8.1 (6.3-8.2) g/dL Albumin 4.4 (3.5-5.0) g/dL Amylase (30-110) U/L Lipase (23-300) U/L 01/19/19 01/19/19 01/19/19 Range/Units 01:00 01:00 04:30 WBC (4.0-10.5) K/mm3 RBC (4.1-5.6) M/mm3 Hgb (12.5-18.0) gm/dl Hct (42-50) % MCV (78-100) fl MCH (26-32) pg MCHC (32-36) g/dl RDW (11.5-14.0) % Plt Count (150-450) K/mm3 MPV (6-9.5) fl Gran % (36.0-66.0) % Eos # (Auto) (0-0.5) Absolute Lymphs (auto) (1.0-4.6) Absolute Monos (auto) (0.0-1.3) Lymphocytes % (24.0-44.0) % Monocytes % (0.0-12.0) % Eosinophils % (0.00-5.0) % Basophils % (0.0-0.4) % Absolute Granulocytes (1.4-6.9) Basophils # (0-0.4) PT (8.83-12.87) SECONDS INR (0.8-3.0) APTT (24.1-36.1) SECONDS D-Dimer (215-500) ng/mL Sodium (137-145) mmol/L Potassium (3.5-5.1) mmol/L Chloride (98-107) mmol/L Carbon Dioxide (22-30) mmol/L Anion Gap (5-15) MEQ/L BUN (9-20) mg/dL Creatinine (0.66-1.25) mg/dL Estimated GFR ML/MIN Glucose (74-106) mg/dL Calcium (8.4-10.2) mg/dL Total Bilirubin (0.2-1.3) mg/dL AST (17-59) U/L ALT (0-50) U/L Alkaline Phosphatase (38-126) U/L Troponin I 0.013 0.043 H* (0.000-0.034) ng/mL Serum Total Protein (6.3-8.2) g/dL Albumin (3.5-5.0) g/dL Amylase 79 (30-110) U/L Lipase 230 (23-300) U/L 01/19/19 Range/Units 07:00 WBC (4.0-10.5) K/mm3 RBC (4.1-5.6) M/mm3 Hgb (12.5-18.0) gm/dl Hct (42-50) % MCV (78-100) fl MCH (26-32) pg MCHC (32-36) g/dl RDW (11.5-14.0) % Plt Count (150-450) K/mm3 MPV (6-9.5) fl Gran % (36.0-66.0) % Eos # (Auto) (0-0.5) Absolute Lymphs (auto) (1.0-4.6) Absolute Monos (auto) (0.0-1.3) Lymphocytes % (24.0-44.0) % Monocytes % (0.0-12.0) % Eosinophils % (0.00-5.0) % Basophils % (0.0-0.4) % Absolute Granulocytes (1.4-6.9) Basophils # (0-0.4) PT (8.83-12.87) SECONDS INR (0.8-3.0) APTT (24.1-36.1) SECONDS D-Dimer (215-500) ng/mL Sodium (137-145) mmol/L Potassium (3.5-5.1) mmol/L Chloride (98-107) mmol/L Carbon Dioxide (22-30) mmol/L Anion Gap (5-15) MEQ/L BUN (9-20) mg/dL Creatinine (0.66-1.25) mg/dL Estimated GFR ML/MIN Glucose (74-106) mg/dL Calcium (8.4-10.2) mg/dL Total Bilirubin (0.2-1.3) mg/dL AST (17-59) U/L ALT (0-50) U/L Alkaline Phosphatase (38-126) U/L Troponin I 0.072 H* (0.000-0.034) ng/mL Serum Total Protein (6.3-8.2) g/dL Albumin (3.5-5.0) g/dL Amylase (30-110) U/L Lipase (23-300) U/L - Radiology Exams Ordered Rad Exams-Entire Visit: Radiology Procedures Category Date Time Status CHEST 1 VIEW (PORTABLE) Stat Exams 01/19/19 00:55 Taken CHEST WITH CONTRAST [CT] Stat Exams 01/19/19 01:33 Taken - Procedures and Test Procedures and Tests throughout Hospitalization: Therapy Orders & Screens 01/19/19 04:31 Respiratory Therapy Consult ROUTINE Comment: Reason For Exam: 01/19/19 05:31 OT Screen per Nursing Assess Comment: Protocol Order Physician Instructions: Greater than 3 points order OT Admission Screening Reason For Exam: Triggered on Admission Diagnosis: PE Open Wound/Cellutlitis/Pressure Ulcers: No Acute Fx/ORIF/Change in wt bearing status: No Severe MUSCULOSKELETAL pain: No ADL Dysfunction: Yes Acute CVA w/Hemiparesis/Hemiplegia: No Decreased Functional Mobility/Strength: Yes Sprain/Strain: No Acute Post-op Mobility Dysfunction: No Total Points: 4 PT Screen per Nursing Assess ONCE Comment: Protocol Order Physician Instructions: Greater than 3 points order PT Admission Screenin Reason For Exam: Triggered on Admission Diagnosis: PE Open Wound/Cellutlitis/Pressure Ulcers: No Acute Fx/ORIF/Change in wt bearing status: No Severe MUSCULOSKELETAL pain: No ADL Dysfunction: Yes Acute CVA w/Hemiparesis/Hemiplegia: No Decreased Functional Mobility/Strength: Yes Sprain/Strain: No Acute Post-op Mobility Dysfunction: No Total Points: 4 - Discharge Disposition: Skilled Care @ [facility] Condition: Fair Prescriptions: No Action Famotidine 20 mg [Pepcid 20 MG] 20 mg PO BID Metformin HCl 1000 mg [Glucophage 1000 MG] 1,000 mg PO BID Terbinafine HCl 250 mg PO DAILY Ropinirole HCl 2 mg PO HS Metoprolol Succinate 25 mg PO HS Atorvastatin Calcium [Lipitor] 40 mg PO HS Isosorbide Mononitrate [Isosorbide Mononitrate ER] 120 mg PO DAILY Aspirin 81 mg PO DAILY Amlodipine Besylate 5 mg [Norvasc 5 mg] 2.5 mg PO HS Clopidogrel Bisulfate 75 mg [PLAVIX 75 MG Tablet] 75 mg PO DAILY Polyethylene Glycol 3350 17 gm [Miralax Powder 17GM PACKET] 17 gm PO DAILY PANTOPRAZOLE 40 mg Tablet [Protonix 40MG Tablet] 40 mg PO DAILY Glatiramer Acetate [Copaxone] 40 mg SQ 3XW Duloxetine HCl 30 mg [Cymbalta 30 MG Capsule] 60 mg PO DAILY Ondansetron ODT 4 MG [Zofran Odt 4 mg] 4 mg PO Q6H PRN PRN PRN Reason: Nausea Ranolazine 500 MG [Ranexa 500 MG] 500 mg PO BID Sennosides [Senna Laxative] 8.6 mg PO DAILY Ropinirole HCl 1 mg PO TID Nitroglycerin 0.4 mg Tablet [Nitrostat 0.4 MG Tablet] 0.4 mg SL Q12H PRN PRN PRN Reason: Chest Pain Methocarbamol [Robaxin-750] 1,500 mg PO TID Loperamide HCl 2 mg [Imodium 2 mg] 2 mg PO TID PRN PRN Reason: Diarrhea Dextrose [Glucose] 4 gm PO UD Ergocalciferol (Vitamin D2) [Vitamin D] 50,000 unit PO 2XW Multivit with Iron,Minerals [Unicomplex-M] 1 each PO DAILY Magnesium Oxide 400 mg [Mag-Ox 400] 400 mg PO BID Tramadol HCl 50 mg [Ultram 50 mg] 50 mg PO Q6HPRN PRN PRN Reason: Pain Folic Acid 1 mg [Folate 1 mg] 1 mg PO DAILY Docusate Sodium 100 mg [Colace 100 MG] 100 mg PO BID Furosemide 20 mg [Lasix 20 mg] 20 mg PO DAILY Gabapentin [Neurontin] 600 mg PO TID Buspirone HCl 5 mg [Buspar 5 mg] 10 mg PO BID Potassium Chloride 10 Meq Tab* [Klor Con 10 MEQ] 10 meq PO DAILY Acetaminophen 500 mg [Tylenol Extra Strength 500 mg] 500 mg PO Q4H PRN PRN PRN Reason: Pain And/Or Fever Cyanocobalamin (Vitamin B-12) [Vitamin B12] 1,000 mcg PO DAILY Follow up with: ZAHRA ROWE [Primary Care Provider] - 1 Week
[2019-01-19] MEDS: NovoLOG Insulin SQ PRN ×4 (09:01→23:06)
[2019-01-19] MEDS ORDERED: ULTRAM 50 MG PO PRN (09:12)
[2019-01-19] MEDS ORDERED: ZOFRAN ODT 4 MG PO PRN (09:12)
[2019-01-19] MEDS ORDERED: IMODIUM 2 MG PO PRN (09:12)
[2019-01-19] MEDS ORDERED: TYLENOL EXTRA STRENGTH 500 MG PO PRN (09:12)
[2019-01-19] MEDS ORDERED: Nitrostat 0.4 MG Tablet SL PRN (09:12)
[2019-01-19] MEDS ORDERED: GLATIRAMER ACETATE 40 MG SQ SCH (09:15)
[2019-01-19] MEDS ORDERED: Dex4 Glucose 4 GM TABLET PO PRN (09:15)
--- NOTE | 2019-01-19 09:30 | XRAY ---
Indication: Chest pain. Elevated d-dimer. Multiple contiguous axial images obtained through the chest using 80 cc Isovue 370 contrast and PE protocol. Comparison: April 17, 2016. There is satisfactory opacification of the pulmonary arteries to include the lobar and segmental branches. New pulmonary embolus in the medial segmental branch of the left lower lobe. No other pulmonary embolus. Heart is borderline enlarged. Aorta normal in course and caliber without aneurysm/dissection. No pathologic mediastinal/hilar lymphadenopathy. Again small hiatal hernia. Examination of the lung parenchyma again demonstrates minimal bilateral dependent atelectasis and bibasilar atelectasis/scarring. No suspicious pulmonary mass, infiltrates, or effusion. Bony thorax intact again with mild degenerative changes throughout the spine. Limited upper abdomen again demonstrates mild fatty liver, tiny hepatic cyst, and 14.9 cm splenomegaly. Impression: 1. New left lower lobe segmental pulmonary embolus. No distal infarct. 2. Again incidental small hiatal hernia, fatty liver, tiny hepatic cyst, and splenomegaly. Comment: Preliminary interpretation was made by [facility]. No critical discrepancy. CT DI 27.78
--- NOTE | 2019-01-19 09:32 | XRAY ---
Indication: Chest pain. Comparison: June 26, 2016. Portable chest remains clear again with borderline cardiomegaly. Bony thorax intact again with mild degenerative changes. No new/acute findings.
[2019-01-19] MEDS ORDERED: MEDICATION INTERVENTION MC SCH (09:45)
[2019-01-19] MEDS ORDERED: VITAMIN D2 PO SCH (10:00)
[2019-01-19] MEDS ORDERED: lamISIL 250 MG PO SCH (10:00)
[2019-01-19] MEDS ORDERED: METHOCARBAMOL 1500 MG PO SCH (10:00)
[2019-01-19] MEDS ORDERED: NON-FORMULARY ITEM (Ropinirole Hcl [Ropinirole Hcl] 1 MG) PO SCH (10:00)
[2019-01-19] MEDS ORDERED: ECOTRIN 81 MG PO SCH (10:00)
[2019-01-19] MEDS ORDERED: NON-FORMULARY ITEM (Metformin Hcl 1000 Mg [Glucophage 1000 Mg] 1,000 MG) PO SCH (10:00)
[2019-01-19] MEDS ORDERED: MULTIVIT WITH IRON MINERALS PO SCH (10:00)
[2019-01-19] MEDS ORDERED: NON-FORMULARY ITEM (Cyanocobalamin (Vitamin B-12) [Vitamin B12] 1,000 MCG) PO SCH (10:00)
[2019-01-19] MEDS: Vitamin B-12 500 MCG PO SCH (10:28)
[2019-01-19] MEDS: Cymbalta 30 MG Capsule PO SCH (10:29)
[2019-01-19] MEDS: BUSPAR 5 MG PO SCH ×2 (10:29→22:10)
[2019-01-19] MEDS: MAG-OX 400 PO SCH ×2 (10:29→22:10)
[2019-01-19] MEDS: Imdur 60MG PO SCH (10:29)
[2019-01-19] MEDS: Pepcid 20 MG PO SCH ×2 (10:29→22:09)
[2019-01-19] MEDS: SENOKOT 8.6 MG PO SCH (10:30)
[2019-01-19] MEDS: THERAGRAN MULTIVITAMIN PO SCH (10:30)
[2019-01-19] MEDS: PLAVIX 75 MG Tablet PO SCH (10:30)
[2019-01-19] MEDS: Protonix 40MG Tablet PO SCH (10:30)
[2019-01-19] MEDS: Colace 100 MG PO SCH ×2 (10:30→22:10)
[2019-01-19] MEDS: FOLATE 1 MG PO SCH (10:30)
[2019-01-19] MEDS: Ranexa 500 MG PO SCH ×2 (10:30→22:08)
[2019-01-19] MEDS: NEURONTIN 300 MG PO SCH ×3 (10:31→22:10)
[2019-01-19] MEDS: Klor Con 10 MEQ PO SCH (10:31)
[2019-01-19] MEDS: Robaxin 500 MG PO SCH ×3 (10:32→22:09)
[2019-01-19] MEDS: Miralax Powder 17GM PACKET PO SCH (10:33)
[2019-01-19] MEDS: LASIX 20 MG PO SCH (10:36)
[2019-01-19] MEDS: Requip 0.5 MG PO SCH ×3 (10:36→17:35)
[2019-01-19] MEDS: ELIQUIS 2.5 MG TABLET PO SCH (17:33)
[2019-01-19] MEDS ORDERED: NORVASC 5 MG PO SCH (22:00)
[2019-01-19] MEDS ORDERED: Ecotrin 325 MG PO SCH (22:00)
[2019-01-19] MEDS ORDERED: Toprol-Xl 25MG Tablets PO SCH (22:00)
[2019-01-19] MEDS ORDERED: REQUIP 2MG TAB PO SCH (22:00)
[2019-01-19] MEDS ORDERED: ZOCOR 20MG PO SCH (22:00)
[2019-01-19] MEDS ORDERED: NON-FORMULARY ITEM (Atorvastatin Calcium [Lipitor] 40 MG) PO SCH (22:00)
[2019-01-20 05:30] LABS: BASOPHIL % 0.6 % (0.0-0.4); Basophil (Absolute #) 0.03 (0-0.4); Eosinophil % 3.2 % (0.00-5.0); Eosinophil (Absolute #) 0.17 (0-0.5); Granulocytes % 66.5 % (36.0-66.0); Hematocrit 32.4 % (42-50); Hemoglobin 10.3 gm/dl (12.5-18.0); Lymphocyte (Absolute #) 1.13 (1.0-4.6); Lymphocytes % 21.5 % (24.0-44.0); Mean Cell Volume 94.7 fl (78-100); Mean Corpuscular Hemoglobin 30.1 pg (26-32); Mean Corpuscular Hgb Concent. 31.8 g/dl (32-36); Mean Platelet Volume 9.1 fl (6-9.5); Monocyte (Absolute #) 0.43 (0.0-1.3); Monocytes % 8.2 % (0.0-12.0); Platelet Count 230 K/mm3 (150-450); Red Blood Count 3.42 M/mm3 (4.1-5.6); Red Cell Distribution Width 17.9 % (11.5-14.0); White Blood Count 5.3 K/mm3 (4.0-10.5)
[2019-01-20 05:41] LABS: ALBUMIN 3.7 g/dL (3.5-5.0); ALKALINE PHOSPHATASE 64 U/L (38-126); ANION GAP 13.3 MEQ/L (5-15); BLOOD UREA NITROGEN 21 mg/dL (9-20); CHLORIDE 102 mmol/L (98-107); Calcium 9.7 mg/dL (8.4-10.2); Carbon Dioxide 29 mmol/L (22-30); Creatinine 1 0.92 mg/dL (0.66-1.25); Glucose 168 mg/dL (74-106); Potassium 4.3 mmol/L (3.5-5.1); SGOT/AST 37 U/L (17-59); SGPT/ALT 36 U/L (0-50); SODIUM 140 mmol/L (137-145); Total Protein 7.1 g/dL (6.3-8.2)
[2019-01-20] MEDS: ELIQUIS 2.5 MG TABLET PO SCH (08:13)
--- NOTE | 2019-01-20 08:15 | PCM.DS ---
Discharge Summary Date of Admission: 01/19/19 04:28 Admitting Physician: BOWEN NICOLAS Consults: Consults on Case 01/19/19 08:40 Consult Cardiology ROUTINE Primary Care Provider: LENA Allergies Allergies interferon beta-1a [From Avonex] Allergy (Verified 06/26/16 22:42) Penicillins Allergy (Verified 04/17/16 21:52) interferon beta-1b [From Betaseron] Adverse Reaction (Verified 06/26/16 22:42) Hospital Summary - Hospital Course Hospital Course: patient was admitted with chest pain, found to have PE in ER after d-dimer was elevated, had mild elevation in troponin, was seen by cardiology and has echo and lower extremity dopplers ordered for this morning. he has been pain-free since admission and feels great, wants to return to [facility]. - Vitals & Intake/Output Vital Signs: Vital Signs Temperature 97.5 F 01/20/19 04:00 Pulse Rate 77 01/20/19 04:00 Respiratory Rate 14 01/20/19 04:00 Blood Pressure 125/69 01/20/19 04:00 O2 Sat by Pulse Oximetry 94 L 01/20/19 07:01 Intake & Output: Intake & Output 01/17/19 01/18/19 01/19/19 01/20/19 11:59 11:59 11:59 11:59 Intake Total 380 Output Total 700 2300 Balance -700 -1920 Weight 108.3 kg - Lab Result Diagrams: 01/20/19 05:12 01/20/19 05:12 Lab Results-Last 24 Hrs: Accuchecks Date 01/19/19 Time 22:00 Accucheck Value: 288 Accucheck Value: 285 Accucheck Value: 192 Lab Results-Last 24 Hours 01/19/19 01/19/19 01/20/19 Range/Units 10:10 13:10 05:12 WBC 5.3 (4.0-10.5) K/mm3 RBC 3.42 L (4.1-5.6) M/mm3 Hgb 10.3 L (12.5-18.0) gm/dl Hct 32.4 L (42-50) % MCV 94.7 (78-100) fl MCH 30.1 (26-32) pg MCHC 31.8 L (32-36) g/dl RDW 17.9 H (11.5-14.0) % Plt Count 230 (150-450) K/mm3 MPV 9.1 (6-9.5) fl Gran % 66.5 H (36.0-66.0) % Eos # (Auto) 0.17 (0-0.5) Absolute Lymphs (auto) 1.13 (1.0-4.6) Absolute Monos (auto) 0.43 (0.0-1.3) Lymphocytes % 21.5 L (24.0-44.0) % Monocytes % 8.2 (0.0-12.0) % Eosinophils % 3.2 (0.00-5.0) % Basophils % 0.6 (0.0-0.4) % Absolute Granulocytes 3.50 (1.4-6.9) Basophils # 0.03 (0-0.4) Sodium (137-145) mmol/L Potassium (3.5-5.1) mmol/L Chloride (98-107) mmol/L Carbon Dioxide (22-30) mmol/L Anion Gap (5-15) MEQ/L BUN (9-20) mg/dL Creatinine (0.66-1.25) mg/dL Estimated GFR ML/MIN Glucose (74-106) mg/dL Calcium (8.4-10.2) mg/dL Total Bilirubin (0.2-1.3) mg/dL AST (17-59) U/L ALT (0-50) U/L Alkaline Phosphatase (38-126) U/L Troponin I 0.093 H* 0.091 H* (0.000-0.034) ng/mL Serum Total Protein (6.3-8.2) g/dL Albumin (3.5-5.0) g/dL 01/20/19 Range/Units 05:12 WBC (4.0-10.5) K/mm3 RBC (4.1-5.6) M/mm3 Hgb (12.5-18.0) gm/dl Hct (42-50) % MCV (78-100) fl MCH (26-32) pg MCHC (32-36) g/dl RDW (11.5-14.0) % Plt Count (150-450) K/mm3 MPV (6-9.5) fl Gran % (36.0-66.0) % Eos # (Auto) (0-0.5) Absolute Lymphs (auto) (1.0-4.6) Absolute Monos (auto) (0.0-1.3) Lymphocytes % (24.0-44.0) % Monocytes % (0.0-12.0) % Eosinophils % (0.00-5.0) % Basophils % (0.0-0.4) % Absolute Granulocytes (1.4-6.9) Basophils # (0-0.4) Sodium 140 (137-145) mmol/L Potassium 4.3 (3.5-5.1) mmol/L Chloride 102 (98-107) mmol/L Carbon Dioxide 29 (22-30) mmol/L Anion Gap 13.3 (5-15) MEQ/L BUN 21 H (9-20) mg/dL Creatinine 0.92 (0.66-1.25) mg/dL Estimated GFR > 60.0 ML/MIN Glucose 168 H (74-106) mg/dL Calcium 9.7 (8.4-10.2) mg/dL Total Bilirubin 0.50 (0.2-1.3) mg/dL AST 37 (17-59) U/L ALT 36 (0-50) U/L Alkaline Phosphatase 64 (38-126) U/L Troponin I (0.000-0.034) ng/mL Serum Total Protein 7.1 (6.3-8.2) g/dL Albumin 3.7 (3.5-5.0) g/dL Micro Results-Entire Visit: Accuchecks Date 01/19/19 Time 22:00 Accucheck Value: 288 Accucheck Value: 285 Accucheck Value: 192 - Radiology Exams Ordered Rad Exams-Entire Visit: Radiology Procedures Category Date Time Status CHEST 1 VIEW (PORTABLE) Stat Exams 01/19/19 00:55 Completed CHEST WITH CONTRAST [CT] Stat Exams 01/19/19 01:33 Completed ECHO W/2D AND DOPPLER [US] Urgent Exams 01/20/19 08:00 Ordered VENOUS BILATERAL EXTREMITY [US] Urgent Exams 01/20/19 08:00 Ordered - Procedures and Test Procedures and Tests throughout Hospitalization: Therapy Orders & Screens 01/19/19 04:31 Respiratory Therapy Consult ROUTINE Comment: Reason For Exam: 01/19/19 05:31 OT Screen per Nursing Assess Comment: Protocol Order Physician Instructions: Greater than 3 points order OT Admission Screening Reason For Exam: Triggered on Admission Diagnosis: PE Open Wound/Cellutlitis/Pressure Ulcers: No Acute Fx/ORIF/Change in wt bearing status: No Severe MUSCULOSKELETAL pain: No ADL Dysfunction: Yes Acute CVA w/Hemiparesis/Hemiplegia: No Decreased Functional Mobility/Strength: Yes Sprain/Strain: No Acute Post-op Mobility Dysfunction: No Total Points: 4 PT Screen per Nursing Assess ONCE Comment: Protocol Order Physician Instructions: Greater than 3 points order PT Admission Screenin Reason For Exam: Triggered on Admission Diagnosis: PE Open Wound/Cellutlitis/Pressure Ulcers: No Acute Fx/ORIF/Change in wt bearing status: No Severe MUSCULOSKELETAL pain: No ADL Dysfunction: Yes Acute CVA w/Hemiparesis/Hemiplegia: No Decreased Functional Mobility/Strength: Yes Sprain/Strain: No Acute Post-op Mobility Dysfunction: No Total Points: 4 Discharge Exam General Appearance: no apparent distress, obese Neurologic Exam: alert, oriented x 3 Skin Exam: normal color, warm, dry Respiratory Exam: normal breath sounds, lungs clear, No respiratory distress Cardiovascular Exam: regular rate/rhythm, normal heart sounds Gastrointestinal/Abdomen Exam: soft, No tenderness, No mass Extremity Exam: swelling Final Diagnosis/Problem List - Final Discharge Diagnosis/Problem (1) Pulmonary embolism Current Visit: Yes Status: Acute Code(s): I26.99 - OTHER PULMONARY EMBOLISM WITHOUT ACUTE COR PULMONALE (2) Elevated troponin Current Visit: Yes Status: Acute Code(s): R74.8 - ABNORMAL LEVELS OF OTHER SERUM ENZYMES (3) Chest pain Current Visit: Yes Status: Acute Code(s): R07.9 - CHEST PAIN, UNSPECIFIED (4) Multiple sclerosis Current Visit: No Status: Acute Code(s): G35 - MULTIPLE SCLEROSIS (5) Diabetes mellitus Current Visit: No Status: Chronic Code(s): E11.9 - TYPE 2 DIABETES MELLITUS WITHOUT COMPLICATIONS (6) Lymphedema of lower extremity Current Visit: No Status: Chronic Code(s): I89.0 - LYMPHEDEMA, NOT ELSEWHERE CLASSIFIED - Discharge Disposition: Skilled Care @ [facility] Condition: Fair Prescriptions: New Apixaban [Eliquis 2.5 mg Tablet] 10 mg PO BIDWM #14 tablet Continue Famotidine 20 mg [Pepcid 20 MG] 20 mg PO BID Metformin HCl 1000 mg [Glucophage 1000 MG] 1,000 mg PO BID Terbinafine HCl 250 mg PO DAILY Ropinirole HCl 2 mg PO HS Metoprolol Succinate 25 mg PO HS Atorvastatin Calcium [Lipitor] 40 mg PO HS Isosorbide Mononitrate [Isosorbide Mononitrate ER] 120 mg PO DAILY Amlodipine Besylate 5 mg [Norvasc 5 mg] 2.5 mg PO HS Clopidogrel Bisulfate 75 mg [PLAVIX 75 MG Tablet] 75 mg PO DAILY Polyethylene Glycol 3350 17 gm [Miralax Powder 17GM PACKET] 17 gm PO DAILY PANTOPRAZOLE 40 mg Tablet [Protonix 40MG Tablet] 40 mg PO DAILY Glatiramer Acetate [Copaxone] 40 mg SQ 3XW Duloxetine HCl 30 mg [Cymbalta 30 MG Capsule] 60 mg PO DAILY Ondansetron ODT 4 MG [Zofran Odt 4 mg] 4 mg PO Q6H PRN PRN PRN Reason: Nausea Ranolazine 500 MG [Ranexa 500 MG] 500 mg PO BID Sennosides [Senna Laxative] 8.6 mg PO DAILY Ropinirole HCl 1 mg PO TID Nitroglycerin 0.4 mg Tablet [Nitrostat 0.4 MG Tablet] 0.4 mg SL Q12H PRN PRN PRN Reason: Chest Pain Methocarbamol [Robaxin-750] 1,500 mg PO TID Loperamide HCl 2 mg [Imodium 2 mg] 2 mg PO TID PRN PRN Reason: Diarrhea Dextrose [Glucose] 4 gm PO UD Ergocalciferol (Vitamin D2) [Vitamin D] 50,000 unit PO 2XW Multivit with Iron,Minerals [Unicomplex-M] 1 each PO DAILY Magnesium Oxide 400 mg [Mag-Ox 400] 400 mg PO BID Tramadol HCl 50 mg [Ultram 50 mg] 50 mg PO Q6HPRN PRN PRN Reason: Pain Folic Acid 1 mg [Folate 1 mg] 1 mg PO DAILY Docusate Sodium 100 mg [Colace 100 MG] 100 mg PO BID Furosemide 20 mg [Lasix 20 mg] 20 mg PO DAILY Gabapentin [Neurontin] 600 mg PO TID Buspirone HCl 5 mg [Buspar 5 mg] 10 mg PO BID Potassium Chloride 10 Meq Tab* [Klor Con 10 MEQ] 10 meq PO DAILY Acetaminophen 500 mg [Tylenol Extra Strength 500 mg] 500 mg PO Q4H PRN PRN PRN Reason: Pain And/Or Fever Cyanocobalamin (Vitamin B-12) [Vitamin B12] 1,000 mcg PO DAILY Discontinued Aspirin 81 mg PO DAILY Follow up with: ZAHRA ROWE [Primary Care Provider] - 1 Week
[2019-01-20] MEDS: NovoLOG Insulin SQ PRN ×2 (08:35→12:13)
[2019-01-20] MEDS: MAG-OX 400 PO SCH (10:26)
[2019-01-20] MEDS: Requip 0.5 MG PO SCH ×2 (10:26→13:39)
[2019-01-20] MEDS: Ranexa 500 MG PO SCH (10:26)
[2019-01-20] MEDS: Imdur 60MG PO SCH (10:26)
[2019-01-20] MEDS: Vitamin B-12 500 MCG PO SCH (10:27)
[2019-01-20] MEDS: NEURONTIN 300 MG PO SCH (10:27)
[2019-01-20] MEDS: LASIX 20 MG PO SCH (10:27)
[2019-01-20] MEDS: PLAVIX 75 MG Tablet PO SCH (10:27)
[2019-01-20] MEDS: Cymbalta 30 MG Capsule PO SCH (10:28)
[2019-01-20] MEDS: THERAGRAN MULTIVITAMIN PO SCH (10:28)
[2019-01-20] MEDS: Protonix 40MG Tablet PO SCH (10:28)
[2019-01-20] MEDS: Pepcid 20 MG PO SCH (10:28)
[2019-01-20] MEDS: BUSPAR 5 MG PO SCH (10:29)
[2019-01-20] MEDS: FOLATE 1 MG PO SCH (10:29)
[2019-01-20] MEDS: Colace 100 MG PO SCH (10:29)
[2019-01-20] MEDS: Klor Con 10 MEQ PO SCH (10:29)
[2019-01-20] MEDS: SENOKOT 8.6 MG PO SCH (10:29)
[2019-01-20] MEDS: Miralax Powder 17GM PACKET PO SCH (10:30)
[2019-01-20] MEDS: Robaxin 500 MG PO SCH (10:30)
--- NOTE | 2019-01-20 10:50 | XRAY ---
Indication: Pulmonary embolus. Two-dimensional sonogram and color Doppler imaging of the major venous vessels of the left and right leg was performed. Comparison: None Examination of the right leg demonstrates nonoccluding deep vein thrombus in the mid to distal femoral, popliteal, and posterior tibial veins. Remaining common femoral, deep femoral,, and greater saphenous vein negative for thrombus. Left leg negative for thrombus in the examined deep venous vessels including greater saphenous vein. Veins demonstrated normal compressibility. Venous waveforms are normal with and without augmentation. Impression: 1. Right leg positive for DVT as detailed. 2. Left leg negative for DVT.
[2019-01-20 12:18] VITALS: BP 125/66; PULSE 78; O2SAT 96
[2019-01-21] MEDS ORDERED: NON-FORMULARY ITEM (Metformin Hcl 1000 Mg [Glucophage 1000 Mg] 1,000 MG) PO SCH (10:00)
--- NOTE | 2019-01-25 14:00 | ECHO ---
DATE OF PROCEDURE: 01/20/2019 CLINICAL INFORMATION: Chest pain, mitral valve prolapse. The M-mode 2D, and Doppler echocardiogram including color flow Doppler shows the left ventricle is normal in size at 5.5 cm. There is no apical thrombus present. The septal wall thickness is increased at 1.2 cm. The left ventricular posterior wall thickness is increased at 1.3 cm. There is normal contractility of the left ventricle with an ejection fraction calculated at 53%. The right ventricle is grossly normal. The left atrium is moderately dilated with a dimension of 5.1 cm. The interatrial septum is intact. The right atrium is normal. The aortic valve opens well. There is no aortic regurgitation. There is mitral valve leaflet thickening associated with mild mitral regurgitation present. There is mild tricuspid regurgitation. The right ventricular systolic pressure is calculated to be 20 mm of Mercury. The pulmonic valve is not well visualized. The aortic root is mildly dilated at 4.0 cm. There is a small pericardial effusion present. IMPRESSION: 1) SMALL PERICARDIAL EFFUSION. 2) NORMAL CONTRACTILITY OF THE LEFT VENTRICLE. 3) MILD CONCENTRIC LEFT VENTRICULAR HYPERTROPHY. 4) MILD MITRAL REGURGITATION. 5) MILD TRICUSPID REGURGITATION. 6) MODERATE LEFT ATRIAL DILATATION. 7) MILD AORTIC ROOT DILATATION.
== END 2019-01-20 14:25 ==
LOC: ED 00:43 → MED SURG 04:28
PROVIDERS: ADMIT Family Medicine; ATTEND Family Medicine
DX: I26.99 Other pulmonary embolism without acute cor pulmonale (principal); R79.89 Other specified abnormal findings of blood chemistry; R79.1 Abnormal coagulation profile; G35 Multiple sclerosis; E11.9 Type 2 diabetes mellitus without complications; I89.0 Lymphedema, not elsewhere classified; Z79.01 Long term (current) use of anticoagulants; Z79.899 Other long term (current) drug therapy
CPT/HCPCS: 36000; 36415; 71045; 71260; 80053; 82150; 82962; 83690; 84484; 85025; 85379; 85610; 85730; 93005; 93041; 93268; 93306; 93970; 94762; 96372; 99285; G0378; 99284; J1650; A9270-GY

== ENCOUNTER 2019-05-07 22:57 | Emergency (ER) | payer MEDICARE ==
[2019-05-07] MEDS ORDERED: NITRO-BID 2% UD PACKETS TOP ONE (23:07)
--- NOTE | 2019-05-07 23:15 | ERPHSYRPT ---
- History of Present Illness Time Seen by Provider: 05/07/19 23:10 Historian: patient Exam Limitations: no limitations Physician History: Pt started c/o mid sternal chest pressure 1.5 hours ago, denies radiating pain, SOB, nausea, vomiting, dizziness, no productive cough, wheezing, fever, other complaints. He was given 3 NTG by EMS without relief. Pt states, he takes aspirin every day. Timing/Duration: hour(s) (1.5) Activities at Onset: none Quality: pressure Location: substernal Chest Pain Radiation: no radiation Severity of Pain-Max: severe Severity of Pain-Current: moderate Modifying Factors: Improves With: nothing Associated Symptoms: denies symptoms Prior Chest Pain/Cardiac Workup: heart attack Nitro Today/Relief: 0.4 mg x 3 Aspirin Treatment Today: provided at home Allergies/Adverse Reactions: interferon beta-1a [From Avonex] Allergy (Verified 06/26/16 22:42) Penicillins Allergy (Verified 04/17/16 21:52) interferon beta-1b [From Betaseron] Adverse Reaction (Verified 06/26/16 22:42) Home Medications: Amlodipine Besylate 5 mg [Norvasc 5 mg] 2.5 mg PO HS 06/16/16 [History] Atorvastatin Calcium [Lipitor] 40 mg PO HS 06/16/16 [History] Famotidine 20 mg [Pepcid 20 MG] 20 mg PO BID 06/16/16 [History] Isosorbide Mononitrate [Isosorbide Mononitrate ER] 120 mg PO DAILY 06/16/16 [ History] Metformin HCl 1000 mg [Glucophage 1000 MG] 1,000 mg PO BID 06/16/16 [History] Metoprolol Succinate 25 mg PO HS 06/16/16 [History] Ropinirole HCl 2 mg PO HS 06/16/16 [History] Terbinafine HCl 250 mg PO DAILY 06/16/16 [History] Clopidogrel Bisulfate 75 mg [PLAVIX 75 MG Tablet] 75 mg PO DAILY 06/26/16 [History] PANTOPRAZOLE 40 mg Tablet [Protonix 40MG Tablet] 40 mg PO DAILY 06/26/16 [ History] Polyethylene Glycol 3350 17 gm [Miralax Powder 17GM PACKET] 17 gm PO DAILY [History] Dextrose [Glucose] 4 gm PO UD 04/28/18 [History] Duloxetine HCl 30 mg [Cymbalta 30 MG Capsule] 60 mg PO DAILY 04/28/18 [ History] Glatiramer Acetate [Copaxone] 40 mg SQ 3XW 04/28/18 [History] Loperamide HCl 2 mg [Imodium 2 mg] 2 mg PO TID PRN 04/28/18 [History] Methocarbamol [Robaxin-750] 1,500 mg PO TID 04/28/18 [History] Nitroglycerin 0.4 mg Tablet [Nitrostat 0.4 MG Tablet] 0.4 mg SL Q12H PRN PRN 04/28/18 [History] Ondansetron ODT 4 MG [Zofran Odt 4 mg] 4 mg PO Q6H PRN PRN 04/28/18 [ History] Ranolazine 500 MG [Ranexa 500 MG] 500 mg PO BID 04/28/18 [History] Ropinirole HCl 1 mg PO TID 04/28/18 [History] Sennosides [Senna Laxative] 8.6 mg PO DAILY 04/28/18 [History] Acetaminophen 500 mg [Tylenol Extra Strength 500 mg] 500 mg PO Q4H PRN PRN 01/19/19 [History] Buspirone HCl 5 mg [Buspar 5 mg] 10 mg PO BID 01/19/19 [History] Cyanocobalamin (Vitamin B-12) [Vitamin B12] 1,000 mcg PO DAILY 01/19/19 [History ] Docusate Sodium 100 mg [Colace 100 MG] 100 mg PO BID 01/19/19 [History] Ergocalciferol (Vitamin D2) [Vitamin D] 50,000 unit PO 2XW 01/19/19 [History] Folic Acid 1 mg [Folate 1 mg] 1 mg PO DAILY 01/19/19 [History] Furosemide 20 mg [Lasix 20 mg] 20 mg PO DAILY 01/19/19 [History] Gabapentin [Neurontin] 600 mg PO TID 01/19/19 [History] Magnesium Oxide 400 mg [Mag-Ox 400] 400 mg PO BID 01/19/19 [History] Multivit with Iron,Minerals [Unicomplex-M] 1 each PO DAILY 01/19/19 [History] Potassium Chloride 10 Meq Tab* [Klor Con 10 MEQ] 10 meq PO DAILY 01/19/19 [ History] Tramadol HCl 50 mg [Ultram 50 mg] 50 mg PO Q6HPRN PRN 01/19/19 [History] Hx Tetanus, Diphtheria Vaccination/Date Given: Yes Hx Influenza Vaccination/Date Given: No Hx Pneumococcal Vaccination/Date Given: No - Review of Systems Constitutional: No Symptoms Ears, Nose, & Throat: No Symptoms Respiratory: No Symptoms Cardiac: Chest Pain Abdominal/Gastrointestinal: No Symptoms Genitourinary Symptoms: No Symptoms Musculoskeletal: No Symptoms Skin: No Symptoms Neurological: No Symptoms All Other Systems: Reviewed and Negative - Past Medical History Pertinent Past Medical History: Yes Neurological History: Other ENT History: No Pertinent History Cardiac History: Coronary Artery Disease, Myocardial Infarction ([place]) Respiratory History: No Pertinent History Endocrine Medical History: Diabetes Type II Musculoskeletal History: Arthritis GI Medical History: GERD History: Other Psycho-Social History: Anxiety Male Reproductive Disorders: No Pertinent History Other Medical History: MULTPILE SCLEROSIS. BILATERAL LE CHRONIC EDEMA AND CELLULITIS WITH HISTORY OF OPEN WOULDS; POOR LE CIRCULATION WITH RLE WORSE THAN LLE. LYMPHODEMA;. NEUROGENIC BLADDER - Past Surgical History Past Surgical History: Yes Neuro Surgical History: No Pertinent History Cardiac: No Pertinent History Respiratory: No Pertinent History Gastrointestinal: No Pertinent History Genitourinary: No Pertinent History Musculoskeletal: No Pertinent History Male Surgical History: No Pertinent History Other Surgical History: BIARTERIAL LEFT LEG, HEART CATH X 5, STRESS TESTS, HERNIA REPAIR - Social History Smoking Status: Former smoker How long have you smoked: 30 Exposure to second hand smoke: No Drug Use: none Patient Lives Alone: No - Nursing Vital Signs Nursing Vital Signs: Initial Vital Signs Temperature 98.6 F 05/07/19 23:33 Pulse Rate 100 H 05/07/19 23:33 Respiratory Rate 16 05/07/19 23:33 Blood Pressure 124/69 05/07/19 23:33 O2 Sat by Pulse Oximetry 95 05/07/19 23:33 Pain Scale Pain Intensity 0 - Physical Exam General Appearance: no apparent distress Ears, Nose, Throat Exam: normal ENT inspection, moist mucous membranes Neck Exam: normal inspection, non-tender, supple, No carotid bruit, No JVD Respiratory Exam: normal breath sounds, airway intact, crackles/rales (left base ), No chest tenderness, No respiratory distress Cardiovascular Exam: regular rate/rhythm, normal heart sounds, normal peripheral pulses, No murmur Gastrointestinal/Abdomen Exam: soft, normal bowel sounds, No tenderness, No distention, No mass, No guarding, No rebound, No organomegaly Back Exam: normal inspection, No CVA tenderness Extremity Exam: pedal edema (chronic, with stasis changes), No calf tenderness Neurologic Exam: alert, oriented x 3 Skin Exam: normal color, warm, dry, No rash, No petechiae, No diaphoresis Lymphatic Exam: No adenopathy SpO2 Interpretation: normal O2 Delivery: Room Air - Course Nursing assessment & vital signs reviewed: Yes EKG Interpreted by Me: RATE (101/min), Sinus Tach, Right Viola Deviation, Right Bundle Branch Block, Non-specific ST Changes - Radiology Exams Chest X-ray Interpretation: Interpreted by me, Negative - CT Exams Chest CT Interpretation: Negative, Tele-radiologist Report Ordered Tests: Active Orders 24 hr Category Date Time Status Communications Field Technician STAT Care 05/07/19 23:08 Active EKG-ER Only STAT Care 05/07/19 23:07 Active EKG-ER Only STAT Care 05/08/19 02:07 Active IV Insertion STAT Care 05/07/19 23:07 Active Oxygen-ED Only Nasal Cannula 2 lpm Care 05/07/19 23:07 Active CHEST 1 VIEW (PORTABLE) Stat Exams 05/07/19 23:08 Taken CHEST WITH CONTRAST [CT] Stat Exams 05/08/19 00:32 Taken CBC W DIFF Stat Lab 05/07/19 23:13 Completed CK-Creatinine Phosphokinase Stat Lab 05/07/19 23:15 Completed CMP Stat Lab 05/07/19 23:15 Completed D-DIMER QUANTITATION Stat Lab 05/07/19 23:38 Completed MAGNESIUM Stat Lab 05/07/19 23:15 Completed NT PRO BNP Stat Lab 05/07/19 23:15 Completed PROTIME WITH INR Stat Lab 05/07/19 23:38 Completed PTT Stat Lab 05/07/19 23:38 Completed TROPONIN Q3H Lab 05/07/19 23:13 Completed TROPONIN Q3H Lab 05/08/19 02:40 Completed TROPONIN Q3H Lab 05/08/19 05:15 Ordered TROPONIN Q3H Lab 05/08/19 08:15 Ordered TROPONIN Q3H Lab 05/08/19 11:15 Ordered Medication Summary Discontinued Medications Generic Name Dose Route Start Last Admin Trade Name Freq PRN Reason Stop Dose Admin Nitroglycerin 1 gm 05/07/19 23:07 Nitro-Bid 2% Ud Packets TOP 05/07/19 23:08 STAT ONE Lab/Rad Data: Laboratory Result Diagrams 05/07/19 23:13 05/07/19 23:15 Laboratory Results 05/08/19 05/07/19 05/07/19 Range/Units 02:40 23:38 23:15 WBC (4.0-10.5) K/mm3 RBC (4.1-5.6) M/mm3 Hgb (12.5-18.0) gm/dl Hct (42-50) % MCV (78-100) fl MCH (26-32) pg MCHC (32-36) g/dl RDW (11.5-14.0) % Plt Count (150-450) K/mm3 MPV (6-9.5) fl Gran % (36.0-66.0) % Eos # (Auto) (0-0.5) Absolute Lymphs (auto) (1.0-4.6) Absolute Monos (auto) (0.0-1.3) Lymphocytes % (24.0-44.0) % Monocytes % (0.0-12.0) % Eosinophils % (0.00-5.0) % Basophils % (0.0-0.4) % Absolute Granulocytes (1.4-6.9) Basophils # (0-0.4) PT 13.9 H (8.83-12.87) SECONDS INR 1.23 (0.8-3.0) APTT 36.7 H (24.1-36.1) SECONDS D-Dimer 636 H* (215-500) ng/mL Sodium 142 (137-145) mmol/L Potassium 4.1 (3.5-5.1) mmol/L Chloride 106 (98-107) mmol/L Carbon Dioxide 25 (22-30) mmol/L Anion Gap 16.0 H (5-15) MEQ/L BUN 16 (9-20) mg/dL Creatinine 0.93 (0.66-1.25) mg/dL Estimated GFR > 60.0 ML/MIN Glucose 259 H (74-106) mg/dL Calcium 9.2 (8.4-10.2) mg/dL Magnesium 1.3 L (1.6-2.3) mg/dL Total Bilirubin 0.50 (0.2-1.3) mg/dL AST 31 (17-59) U/L ALT 30 (0-50) U/L Alkaline Phosphatase 79 (38-126) U/L Creatine Kinase 93 (55-170) U/L Troponin I 0.027 (0.000-0.034) ng/mL NT-Pro-B Natriuret Pep 237 (0-900) pg/mL Serum Total Protein 7.6 (6.3-8.2) g/dL Albumin 4.2 (3.5-5.0) g/dL 05/07/19 05/07/19 Range/Units 23:13 23:13 WBC 7.4 (4.0-10.5) K/mm3 RBC 3.53 L (4.1-5.6) M/mm3 Hgb 10.0 L (12.5-18.0) gm/dl Hct 33.1 L (42-50) % MCV 93.8 (78-100) fl MCH 28.3 (26-32) pg MCHC 30.2 L (32-36) g/dl RDW 18.0 H (11.5-14.0) % Plt Count 269 (150-450) K/mm3 MPV 9.8 H (6-9.5) fl Gran % 79.3 H (36.0-66.0) % Eos # (Auto) 0.10 (0-0.5) Absolute Lymphs (auto) 0.92 L (1.0-4.6) Absolute Monos (auto) 0.47 (0.0-1.3) Lymphocytes % 12.5 L (24.0-44.0) % Monocytes % 6.4 (0.0-12.0) % Eosinophils % 1.4 (0.00-5.0) % Basophils % 0.4 (0.0-0.4) % Absolute Granulocytes 5.85 (1.4-6.9) Basophils # 0.03 (0-0.4) PT (8.83-12.87) SECONDS INR (0.8-3.0) APTT (24.1-36.1) SECONDS D-Dimer (215-500) ng/mL Sodium (137-145) mmol/L Potassium (3.5-5.1) mmol/L Chloride (98-107) mmol/L Carbon Dioxide (22-30) mmol/L Anion Gap (5-15) MEQ/L BUN (9-20) mg/dL Creatinine (0.66-1.25) mg/dL Estimated GFR ML/MIN Glucose (74-106) mg/dL Calcium (8.4-10.2) mg/dL Magnesium (1.6-2.3) mg/dL Total Bilirubin (0.2-1.3) mg/dL AST (17-59) U/L ALT (0-50) U/L Alkaline Phosphatase (38-126) U/L Creatine Kinase (55-170) U/L Troponin I 0.017 (0.000-0.034) ng/mL NT-Pro-B Natriuret Pep (0-900) pg/mL Serum Total Protein (6.3-8.2) g/dL Albumin (3.5-5.0) g/dL - Progress Progress: improved Air Movement: good Progress Note: 05/08/19 03:15 Pt has been pain free, denies SOB, dizziness, other complaints, he is asleep, easy to arouse, stable. 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 Blood Culture(s) Obtained: No Antibiotics given: No Counseled pt/family regarding: lab results, diagnosis, need for follow-up, rad results - Departure Departure Disposition: Home Clinical Impression: Chest pain Qualifiers: Chest pain type: unspecified Qualified Code(s): R07.9 - Chest pain, unspecified Condition: Stable Critical Care Time: No Referrals: ZAHRA ROWE [Primary Care Provider] - Instructions: Chest Pain (DC) Additional Instructions: Rest x 2-3 days, follow up with your accounting professor in 2-3 days, return if severe shortness of breath chest pain, vomiting or fever> 102 F!
[2019-05-07 23:16] LABS: BASOPHIL % 0.4 % (0.0-0.4); Basophil (Absolute #) 0.03 (0-0.4); Eosinophil % 1.4 % (0.00-5.0); Granulocyte Absolute (ANC) 5.85 (1.4-6.9); Granulocytes % 79.3 % (36.0-66.0); Hematocrit 33.1 % (42-50); Lymphocyte (Absolute #) 0.92 (1.0-4.6); Lymphocytes % 12.5 % (24.0-44.0); Mean Cell Volume 93.8 fl (78-100); Mean Corpuscular Hemoglobin 28.3 pg (26-32); Mean Corpuscular Hgb Concent. 30.2 g/dl (32-36); Mean Platelet Volume 9.8 fl (6-9.5); Monocyte (Absolute #) 0.47 (0.0-1.3); Monocytes % 6.4 % (0.0-12.0); Platelet Count 269 K/mm3 (150-450); Red Blood Count 3.53 M/mm3 (4.1-5.6); White Blood Count 7.4 K/mm3 (4.0-10.5)
[2019-05-07 23:32] LABS: ALBUMIN 4.2 g/dL (3.5-5.0); ALKALINE PHOSPHATASE 79 U/L (38-126); BLOOD UREA NITROGEN 16 mg/dL (9-20); CHLORIDE 106 mmol/L (98-107); CK-Creatinine Phosphokinase 93 U/L (55-170); Calcium 9.2 mg/dL (8.4-10.2); Carbon Dioxide 25 mmol/L (22-30); Creatinine 1 0.93 mg/dL (0.66-1.25); Glucose 259 mg/dL (74-106); MAGNESIUM 1.3 mg/dL (1.6-2.3); NT PRO BNP 237 pg/mL (0-900); Potassium 4.1 mmol/L (3.5-5.1); SGOT/AST 31 U/L (17-59); SGPT/ALT 30 U/L (0-50); SODIUM 142 mmol/L (137-145); Total Protein 7.6 g/dL (6.3-8.2)
[2019-05-07 23:53] LABS: INR 1.23 (0.8-3.0); PROTIME 13.9 SECONDS (8.83-12.87)
[2019-05-07 23:55] LABS: PTT 36.7 SECONDS (24.1-36.1)
[2019-05-08 05:16] VITALS: O2SAT 98
--- NOTE | 2019-05-08 06:56 | XRAY ---
Indication: Chest pain. Elevated d-dimer. History DVT and PE. Multiple contiguous axial images obtained through the chest using 80 cc Isovue 370 contrast and PE protocol. Comparison: January 19, 2019. There is satisfactory opacification of the pulmonary arteries. However mild respiration artifact limits evaluation of the more distal lobar and segmental branches. No central filling defect or pulmonary embolus. Heart remains borderline enlarged. Aorta is negative for aneurysm/dissection. No pathologic mediastinal/hilar lymphadenopathy. Stable small hiatal hernia. Examination of the lung parenchyma again demonstrates minimal bilateral dependent atelectasis. No suspicious pulmonary mass, infiltrate, or effusion. Bony thorax intact again with mild degenerative changes throughout the spine. Limited upper abdomen demonstrates stable fatty liver, tiny hepatic cyst, and 14.6 cm splenomegaly. Impression: 1. Respiration artifact limits evaluation for pulmonary embolus. No central pulmonary embolus. 2. No new/acute cardiopulmonary disease. 3. Stable small hiatal hernia, fatty liver, hepatic cysts, and splenomegaly. Comment: Preliminary interpretation was made by [facility]. No discrepancy. CTDI 26.42
--- NOTE | 2019-05-08 06:58 | XRAY ---
Indication: Chest pain. Comparison: January 19, 2019. Portable chest underinflated accentuating the cardiopulmonary structures. Stable cardiomegaly. Visualized lungs clear. Bony thorax intact again with mild degenerative changes. Impression: Nonacute underinflated chest. Stable cardiomegaly.
[2019-05-08 07:47] VITALS: BP 108/74; PULSE 92
== END 2019-05-08 08:07 ==
LOC: ED 22:57
DX: R07.9 Chest pain, unspecified (principal)
CPT/HCPCS: 36000; 36415; 71045; 71260; 80053; 82550; 83735; 83880; 84484; 85025; 85379; 85610; 85730; 93005; 93041; 99284

== ENCOUNTER 2019-06-04 01:07 | Emergency (ER) | payer MEDICARE ==
[2019-06-04] MEDS ORDERED: BABY ASPIRIN 81 MG CHEW PO ONE (01:15)
--- NOTE | 2019-06-04 01:15 | ERPHSYRPT ---
- History of Present Illness Time Seen by Provider: 06/04/19 01:08 Historian: patient, EMS Exam Limitations: no limitations Physician History: patient states he has a history of 10 heart attacks. The last one was 2 years ago when he had a balloon placed in his coronary arteries at [facility]. [facility] for a left-sided sharp chest pain started a couple hours ago, not getting better with nitroglycerin.[facility] but went out today with his and ate something outside do that he started having chest pain Timing/Duration: yesterday Activities at Onset: rest Quality: burning, pressure, sharpness Location: substernal Severity of Pain-Max: moderate Severity of Pain-Current: moderate Modifying Factors: Improves With: eating Associated Symptoms: nausea, shortness of breath Prior Chest Pain/Cardiac Workup: cardiac cath, heart attack Nitro Today/Relief: 0.4 mg x 1 Aspirin Treatment Today: no aspirin today Allergies/Adverse Reactions: interferon beta-1a [From Avonex] Allergy (Verified 06/26/16 22:42) Penicillins Allergy (Verified 04/17/16 21:52) interferon beta-1b [From Betaseron] Adverse Reaction (Verified 06/26/16 22:42) Home Medications: Amlodipine Besylate 5 mg [Norvasc 5 mg] 2.5 mg PO HS 06/16/16 [History] Atorvastatin Calcium [Lipitor] 40 mg PO HS 06/16/16 [History] Famotidine 20 mg [Pepcid 20 MG] 20 mg PO BID 06/16/16 [History] Isosorbide Mononitrate [Isosorbide Mononitrate ER] 120 mg PO DAILY 06/16/16 [ History] Metformin HCl 1000 mg [Glucophage 1000 MG] 1,000 mg PO BID 06/16/16 [History] Metoprolol Succinate 25 mg PO HS 06/16/16 [History] Ropinirole HCl 2 mg PO HS 06/16/16 [History] Terbinafine HCl 250 mg PO DAILY 06/16/16 [History] Clopidogrel Bisulfate 75 mg [PLAVIX 75 MG Tablet] 75 mg PO DAILY 06/26/16 [History] PANTOPRAZOLE 40 mg Tablet [Protonix 40MG Tablet] 40 mg PO DAILY 06/26/16 [ History] Polyethylene Glycol 3350 17 gm [Miralax Powder 17GM PACKET] 17 gm PO DAILY [History] Dextrose [Glucose] 4 gm PO UD 04/28/18 [History] Duloxetine HCl 30 mg [Cymbalta 30 MG Capsule] 60 mg PO DAILY 04/28/18 [ History] Glatiramer Acetate [Copaxone] 40 mg SQ 3XW 04/28/18 [History] Loperamide HCl 2 mg [Imodium 2 mg] 2 mg PO TID PRN 04/28/18 [History] Methocarbamol [Robaxin-750] 1,500 mg PO TID 04/28/18 [History] Nitroglycerin 0.4 mg Tablet [Nitrostat 0.4 MG Tablet] 0.4 mg SL Q12H PRN PRN 04/28/18 [History] Ondansetron ODT 4 MG [Zofran Odt 4 mg] 4 mg PO Q6H PRN PRN 04/28/18 [ History] Ranolazine 500 MG [Ranexa 500 MG] 500 mg PO BID 04/28/18 [History] Ropinirole HCl 1 mg PO TID 04/28/18 [History] Sennosides [Senna Laxative] 8.6 mg PO DAILY 04/28/18 [History] Acetaminophen 500 mg [Tylenol Extra Strength 500 mg] 500 mg PO Q4H PRN PRN 01/19/19 [History] Buspirone HCl 5 mg [Buspar 5 mg] 10 mg PO BID 01/19/19 [History] Cyanocobalamin (Vitamin B-12) [Vitamin B12] 1,000 mcg PO DAILY 01/19/19 [History ] Docusate Sodium 100 mg [Colace 100 MG] 100 mg PO BID 01/19/19 [History] Ergocalciferol (Vitamin D2) [Vitamin D] 50,000 unit PO 2XW 01/19/19 [History] Folic Acid 1 mg [Folate 1 mg] 1 mg PO DAILY 01/19/19 [History] Furosemide 20 mg [Lasix 20 mg] 20 mg PO DAILY 01/19/19 [History] Gabapentin [Neurontin] 600 mg PO TID 01/19/19 [History] Magnesium Oxide 400 mg [Mag-Ox 400] 400 mg PO BID 01/19/19 [History] Multivit with Iron,Minerals [Unicomplex-M] 1 each PO DAILY 01/19/19 [History] Potassium Chloride 10 Meq Tab* [Klor Con 10 MEQ] 10 meq PO DAILY 01/19/19 [ History] Tramadol HCl 50 mg [Ultram 50 mg] 50 mg PO Q6HPRN PRN 01/19/19 [History] Hx Tetanus, Diphtheria Vaccination/Date Given: Yes Hx Influenza Vaccination/Date Given: No Hx Pneumococcal Vaccination/Date Given: No - Review of Systems Constitutional: No Fever, No Chills Eyes: No Symptoms Ears, Nose, & Throat: No Symptoms Respiratory: Dyspnea, No Cough Cardiac: Chest Pain, No Edema, No Syncope Abdominal/Gastrointestinal: No Abdominal Pain, No Nausea, No Vomiting, No Diarrhea Genitourinary Symptoms: No Dysuria Musculoskeletal: No Back Pain, No Neck Pain Skin: No Rash Neurological: No Dizziness, No Focal Weakness, No Sensory Changes Psychological: No Symptoms Endocrine: No Symptoms All Other Systems: Reviewed and Negative - Past Medical History Pertinent Past Medical History: Yes Neurological History: Other ENT History: No Pertinent History Cardiac History: Coronary Artery Disease, Myocardial Infarction ([place]) Respiratory History: No Pertinent History Endocrine Medical History: Diabetes Type II Musculoskeletal History: Arthritis GI Medical History: GERD History: Other Psycho-Social History: Anxiety Male Reproductive Disorders: No Pertinent History Other Medical History: MULTPILE SCLEROSIS. BILATERAL LE CHRONIC EDEMA AND CELLULITIS WITH HISTORY OF OPEN WOULDS; POOR LE CIRCULATION WITH RLE WORSE THAN LLE. LYMPHODEMA;. NEUROGENIC BLADDER - Past Surgical History Past Surgical History: Yes Neuro Surgical History: No Pertinent History Cardiac: No Pertinent History Respiratory: No Pertinent History Gastrointestinal: No Pertinent History Genitourinary: No Pertinent History Musculoskeletal: No Pertinent History Male Surgical History: No Pertinent History Other Surgical History: BIARTERIAL LEFT LEG, HEART CATH X 5, STRESS TESTS, HERNIA REPAIR - Social History Smoking Status: Former smoker How long have you smoked: 30 Exposure to second hand smoke: No Drug Use: none Patient Lives Alone: No - Nursing Vital Signs Nursing Vital Signs: Initial Vital Signs Temperature 98.4 F 06/04/19 01:08 Pulse Rate 101 H 06/04/19 01:08 Respiratory Rate 18 06/04/19 01:08 O2 Sat by Pulse Oximetry 96 06/04/19 01:08 Pain Scale Pain Intensity 7 - Physical Exam General Appearance: no apparent distress, alert Eye Exam: PERRL/EOMI, eyes nml inspection Ears, Nose, Throat Exam: normal ENT inspection, moist mucous membranes Neck Exam: normal inspection, non-tender, supple, full range of motion Respiratory Exam: normal breath sounds, lungs clear, No respiratory distress Cardiovascular Exam: regular rate/rhythm, normal heart sounds Gastrointestinal/Abdomen Exam: soft, No tenderness, No mass Back Exam: normal inspection, No CVA tenderness, No vertebral tenderness Extremity Exam: normal inspection, normal range of motion Neurologic Exam: alert, oriented x 3, cooperative, normal mood/affect, sensation nml, No motor deficits Skin Exam: normal color, warm, dry - Course Nursing assessment & vital signs reviewed: Yes EKG Interpreted by Me: RATE (106), Sinus Rhythm, NORMAL AXIS, Right Bundle Branch Block, Other (RVH) Ordered Tests: Active Orders 24 hr Category Date Time Status Electronic 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 STAT Care 06/04/19 01:16 Active EKG-ER Only STAT Care 06/04/19 01:15 Active IV Insertion STAT Care 06/04/19 01:15 Active CHEST 1 VIEW (PORTABLE) Stat Exams 06/04/19 01:15 Taken CBC W DIFF Stat Lab 06/04/19 01:32 Completed CMP Stat Lab 06/04/19 01:32 Completed LIPASE Stat Lab 06/04/19 01:32 Completed NT PRO BNP Stat Lab 06/04/19 01:32 Completed TROPONIN Stat Lab 06/04/19 01:32 Completed Medication Summary Generic Name Dose Route Start Last Admin Trade Name Freq PRN Reason Stop Dose Admin Sodium Chloride 1,000 mls @ 100 mls/hr 06/04/19 02:15 06/04/19 02:15 Sodium Chloride 0.9% 1000 Ml IV 07/04/19 02:14 100 mls/hr .Q10H PERFECTO Administration Discontinued Medications Generic Name Dose Route Start Last Admin Trade Name Freq PRN Reason Stop Dose Admin Aspirin 162 mg 06/04/19 01:15 06/04/19 01:52 Baby Aspirin 81 Mg Chew PO 06/04/19 01:16 162 mg STAT ONE Administration Aspirin Confirm 06/04/19 01:49 Baby Aspirin 81 Mg Chew Administered 06/04/19 01:50 Dose 162 mg .ROUTE .STK-MED ONE Hydromorphone HCl 1 mg 06/04/19 02:07 06/04/19 02:15 Hydromorphone 1 Mg/Ml Ampule IV 06/04/19 02:08 1 mg STAT ONE Administration Hydromorphone HCl Confirm 06/04/19 02:12 Hydromorphone 1 Mg/Ml Ampule Administered 06/04/19 02:13 Dose 1 mg .ROUTE .STK-MED ONE Insulin Human Regular 15 unit 06/04/19 02:07 06/04/19 02:15 Novolin R IV 06/04/19 02:08 15 unit STAT ONE Administration Insulin Human Regular Confirm 06/04/19 02:10 Novolin R Administered 06/04/19 02:11 Dose 15 unit .ROUTE .STK-MED ONE Morphine Sulfate 2 mg 06/04/19 01:27 06/04/19 01:52 Morphine Sulfate 2 Mg Inj IV 06/04/19 01:28 2 mg STAT ONE Administration Morphine Sulfate Confirm 06/04/19 01:49 Morphine Sulfate 2 Mg Inj Administered 06/04/19 01:50 Dose 2 mg .ROUTE .STK-MED ONE Nitroglycerin 0.5 gm 06/04/19 01:29 06/04/19 01:51 Nitro-Bid 2% Ud Packets TOP 06/04/19 01:30 0.5 gm STAT ONE Administration Nitroglycerin Confirm 06/04/19 01:49 Nitro-Bid 2% Ud Packets Administered 06/04/19 01:50 Dose 1 gm .ROUTE .STK-MED ONE Ondansetron HCl 4 mg 06/04/19 01:28 06/04/19 01:52 Zofran 4 Mg/2 Ml Vial IV 06/04/19 01:29 4 mg STAT ONE Administration Ondansetron HCl Confirm 06/04/19 01:49 Zofran 4 Mg/2 Ml Vial Administered 06/04/19 01:50 Dose 4 mg .ROUTE .STK-MED ONE Lab/Rad Data: Laboratory Result Diagrams 06/04/19 01:32 06/04/19 01:32 Laboratory Results 06/04/19 06/04/19 Range/Units 01:32 01:32 WBC 4.7 (4.0-10.5) K/mm3 RBC 3.72 L (4.1-5.6) M/mm3 Hgb 10.5 L (12.5-18.0) gm/dl Hct 33.8 L (42-50) % MCV 90.9 (78-100) fl MCH 28.2 (26-32) pg MCHC 31.1 L (32-36) g/dl RDW 17.8 H (11.5-14.0) % Plt Count 285 (150-450) K/mm3 MPV 9.6 H (6-9.5) fl Gran % 92.8 H (36.0-66.0) % Eos # (Auto) 0.01 (0-0.5) Absolute Lymphs (auto) 0.26 L (1.0-4.6) Absolute Monos (auto) 0.06 (0.0-1.3) Lymphocytes % 5.5 L (24.0-44.0) % Monocytes % 1.3 (0.0-12.0) % Eosinophils % 0.2 (0.00-5.0) % Basophils % 0.2 (0.0-0.4) % Absolute Granulocytes 4.39 (1.4-6.9) Basophils # 0.01 (0-0.4) Sodium 141 (137-145) mmol/L Potassium 4.7 (3.5-5.1) mmol/L Chloride 102 (98-107) mmol/L Carbon Dioxide 22 (22-30) mmol/L Anion Gap 22.3 H (5-15) MEQ/L BUN 16 (9-20) mg/dL Creatinine 1.01 (0.66-1.25) mg/dL Estimated GFR > 60.0 ML/MIN Glucose 507 H* (74-106) mg/dL Calcium 9.5 (8.4-10.2) mg/dL Total Bilirubin 0.50 (0.2-1.3) mg/dL AST 29 (17-59) U/L ALT 25 (0-50) U/L Alkaline Phosphatase 95 (38-126) U/L Troponin I < 0.012 (0.000-0.034) ng/mL NT-Pro-B Natriuret Pep 354 (0-900) pg/mL Serum Total Protein 7.8 (6.3-8.2) g/dL Albumin 4.2 (3.5-5.0) g/dL Lipase 98 (23-300) U/L - Progress Progress: re-examined, unchanged Air Movement: fair Progress Note: 06/04/19 02:16 Pt's rental counter clerk is at [facility]. I called [facility]. 06/04/19 02:19 [facility] access line told me that they will call me back with the rental counter clerk 06/04/19 02:39 a call back to [facility]. They have not called the hospitalist yet. I told them to call the hospitalist as soon as possible 06/04/19 02:47 Dr. Donato at the unit accepted the patient 06/04/19 02:47 Blood Culture(s) Obtained: No Antibiotics given: No Counseled pt/family regarding: diagnosis - Departure Departure Disposition: Transfer Clinical Impression: Chest pain Qualifiers: Chest pain type: unspecified Qualified Code(s): R07.9 - Chest pain, unspecified Condition: Stable Critical Care Time: No Referrals: ZAHRA ROWE [Primary Care Provider] - Instructions: Angina (DC)
[2019-06-04] MEDS ORDERED: MORPHINE SULFATE 2 MG INJ IV ONE (01:27)
[2019-06-04] MEDS ORDERED: Zofran 4 MG/2 ML VIAL IV ONE (01:28)
[2019-06-04] MEDS ORDERED: NITRO-BID 2% UD PACKETS TOP ONE (01:29)
[2019-06-04 01:37] LABS: BASOPHIL % 0.2 % (0.0-0.4); Basophil (Absolute #) 0.01 (0-0.4); Eosinophil % 0.2 % (0.00-5.0); Eosinophil (Absolute #) 0.01 (0-0.5); Granulocyte Absolute (ANC) 4.39 (1.4-6.9); Granulocytes % 92.8 % (36.0-66.0); Hematocrit 33.8 % (42-50); Hemoglobin 10.5 gm/dl (12.5-18.0); Lymphocyte (Absolute #) 0.26 (1.0-4.6); Lymphocytes % 5.5 % (24.0-44.0); Mean Cell Volume 90.9 fl (78-100); Mean Corpuscular Hemoglobin 28.2 pg (26-32); Mean Corpuscular Hgb Concent. 31.1 g/dl (32-36); Mean Platelet Volume 9.6 fl (6-9.5); Monocyte (Absolute #) 0.06 (0.0-1.3); Monocytes % 1.3 % (0.0-12.0); Platelet Count 285 K/mm3 (150-450); Red Blood Count 3.72 M/mm3 (4.1-5.6); Red Cell Distribution Width 17.8 % (11.5-14.0); White Blood Count 4.7 K/mm3 (4.0-10.5)
[2019-06-04] MEDS ORDERED: BABY ASPIRIN 81 MG CHEW ONE (01:49)
[2019-06-04] MEDS ORDERED: Zofran 4 MG/2 ML VIAL ONE (01:49)
[2019-06-04] MEDS ORDERED: NITRO-BID 2% UD PACKETS ONE (01:49)
[2019-06-04] MEDS ORDERED: MORPHINE SULFATE 2 MG INJ ONE (01:49)
[2019-06-04 01:53] LABS: SGPT/ALT 25 U/L (0-50)
[2019-06-04 02:04] LABS: ALBUMIN 4.2 g/dL (3.5-5.0); ALKALINE PHOSPHATASE 95 U/L (38-126); ANION GAP 22.3 MEQ/L (5-15); BLOOD UREA NITROGEN 16 mg/dL (9-20); CHLORIDE 102 mmol/L (98-107); Calcium 9.5 mg/dL (8.4-10.2); Carbon Dioxide 22 mmol/L (22-30); Creatinine 1 1.01 mg/dL (0.66-1.25); LIPASE 98 U/L (23-300); NT PRO BNP 354 pg/mL (0-900); Potassium 4.7 mmol/L (3.5-5.1); SGOT/AST 29 U/L (17-59); SODIUM 141 mmol/L (137-145); Total Protein 7.8 g/dL (6.3-8.2)
[2019-06-04 02:05] LABS: Glucose 507 mg/dL (74-106); TROPONIN < 0.012 ng/mL (0.000-0.034)
[2019-06-04] MEDS ORDERED: NovoLIN R IV ONE (02:07)
[2019-06-04] MEDS ORDERED: Hydromorphone 1 mg/ml Ampule IV ONE (02:07)
[2019-06-04] MEDS ORDERED: NovoLIN R ONE (02:10)
[2019-06-04] MEDS ORDERED: Sodium Chloride 0.9% 1000 ML 1,000 ML ONE (02:12)
[2019-06-04] MEDS ORDERED: Hydromorphone 1 mg/ml Ampule ONE (02:12)
[2019-06-04] MEDS ORDERED: Sodium Chloride 0.9% 1000 ML 1,000 ML IV SCH (02:15)
[2019-06-04 03:04] VITALS: BP 161/109; PULSE 100; O2SAT 98
--- NOTE | 2019-06-04 08:58 | XRAY ---
Indication: Chest pain. Comparison: May 07, 2019. Portable chest slightly rotated with stable cardiomegaly and right hemidiaphragm elevation with adjacent discoid atelectasis. Remaining heart and lungs unremarkable. No new/acute findings.
== END 2019-06-04 03:29 | disposition short-term general hospital (02) ==
LOC: ED 01:07
DX: R07.9 Chest pain, unspecified (principal)
CPT/HCPCS: 36000; 36415; 71045; 80053; 83690; 83880; 84484; 85025; 93005; 93041; 96360; 96374; 96375; 99285; J1170; J2270; J2405; A9270-GY